=== PATIENT | male | born 1940 | race Caucasian/White ===

== ENCOUNTER 2018-06-24 10:20 | Inpatient (IN) | payer OTHER, MEDICARE ==
[~2018-06-24] VITALS: Ht 188 cm; Wt 124.3 kg
[~2018-06-24 10:20] MED LIST: ASPIRIN EC81 M1 PO; BACLOFEN10 M1 PO; CELEBREX100 M1 PO; CYANOCOBAL1000 MCG/2 IM; CYCLOBENZAPRINE5 M2 PO; DILAUDID2 M1 PO; DOK100 MG PO; FOLIC ACID1 M1 PO; LEVOTHYROXINE150 MCG PO; LISINOPRIL40 MG PO; LOVENOX40 MG/0.1 SC; LYRICA50 M1 PO; METOPROLOL TART25 M1 PO; ONE DAILY MULT1 EAC2 PO; PERCOCET 325 MG1 TA2 PO; SANTYL30 GM TOP; TRAMADOL HCL50 M1 PO; TYLENOL325 M1 PO; VALIUM 10 MG. T10 MG PO; VITAMIN D31000 UNI1 PO; VITAMIN D32000 I1 PO
--- NOTE | 2018-06-24 10:25 | ED GENERAL ADULT ---
History of Present Illness General Chief Complaint: Neuro Symptoms/ Deficit Stated Complaint: BIBA STROKE ALERT Source: patient, EMS Exam Limitations: clinical condition, physical impairment Vital Signs & Intake/Output Vital Signs & Intake/Output Vital Signs Date Time Temp Pulse Resp B/P B/P Pulse O2 O2 Flow FiO2 Mean Ox Delivery Rate 06/24 1436 97.0 60 16 140/80 94 Room Air 06/24 1347 97.5 52 18 148/64 98 06/24 1322 97.5 61 15 142/60 95 Room Air Room Air 06/24 1305 97.5 58 18 140/74 95 Room Air Room Air 06/24 1250 52 17 06/24 1233 98.5 50 18 132/70 98 Nasal 2.0L Cannula 06/24 1220 47 18 138/66 98 Nasal 2.0L Cannula 06/24 1205 47 18 138/68 98 Nasal 2.0L Cannula 06/24 1151 98.2 47 18 136/68 98 Nasal 2.0L Cannula 06/24 1135 98.2 45 18 136/72 97 Nasal 2.0L Cannula 06/24 1116 98.2 46 20 138/62 97 Nasal 2.0L Cannula 06/24 1033 52 15 136/68 92 Room Air Room Air Allergies Coded Allergies: No Known Allergies (06/24/18) Reconcile Medications Aspirin (Ecotrin*) 81 MG TABLET.DR 1 TAB PO DAILY HEART HEALTH (Reported) Cholecalciferol (Vitamin D3) (Vitamin D3) 1,000 UNIT CAPSULE 1 CAP PO DAILY VITAMIN SUPPORT (Reported) Cyanocobalamin (Vitamin B-12) (Cyanocobalamin Injection) 1,000 MCG/ML VIAL 1 ML IM Q30D VITAMIN SUPPORT (Reported) Folic Acid 1 MG TABLET 1 TAB PO DAILY VITAMIN SUPPORT (Reported) Hydralazine HCl 50 MG TABLET 1 TAB PO TID HEART (Reported) Levothyroxine Sodium 150 MCG TABLET 1 TAB PO DAILY AC THYROID (Reported) Metoprolol Tartrate 25 MG TABLET 1 TAB PO BID HEART (Reported) Multivitamin (One Daily Multivitamin) 1 EACH TABLET 1 TAB PO DAILY VITAMIN SUPPORT (Reported) Pregabalin (Lyrica) 50 MG CAPSULE 1 CAP PO BID PAIN (Reported) Tramadol HCl 50 MG TABLET 1 TAB PO BIDP PRN BREAKTHROUGH PAIN Triage Nurses Notes Reviewed? yes Onset: Abrupt Duration: minute(s): Timing: recent history HPI: 06/24/18 10:51 AM 77-year-old male presents to the emergency department for a sudden onset of right facial weakness and right upper and lower extremity weakness. According to EMS the patient was at the diner and 15 minutes prior to their arrival he was unable to speak and move his right side. The history was collaborated by his friends who were with him at the diner. Currently he is awake and alert and oriented 3. He is unable to speak but answers questions by nodding his head. He is unable to move his right arm or right leg. The onset of the symptoms were abrupt, the duration of the symptoms have been less than 1 hour, the severity is significant as his symptoms required him to come to the emergency department. A stroke alert was called and I discussed the case with the on-call neurologist Dr. Chicas. We are in agreement with the plan to give TPA. The patient verbalized consent and the risks and benefits of TPA were explained to him. His med reconciliation was performed to the best of his ability by the pharmacy consultant. The patient communicated that he is on no blood thinners other than aspirin. Past History Medical History Any Pertinent Medical History? 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 Refer elsewhere in this and other documents for additional details. There is no other information in these categories that I am aware of and no additional information was provided by the patient on consultation evaluation today which is directly pertinent to his current orthopaedic consultation assessment, recommendations or care. History of MRSA: No History of VRE: No History of CDIFF: No Surgical History Surgical History: hernia repair-umbilical, cervical discectomy carpal tunnel release (1982), achilles tendon repair Left hip intertrochanteric-subtroc hanteric fracture ORIF using long cephalomedullary nail (02/11/16, Aditi) ( 1993) Psychosocial History Who do you live with Patient/Self Services at Home None What is your primary language Urdu Family History Family History, If Any: MOTHER FH: Alzheimers disease FATHER FH: lung cancer Hx Contributory? No Review of Systems Review of Systems Constitutional: Denies: fever. EENTM: Reports: no symptoms. Respiratory: Denies: short of breath. Cardiovascular: Denies: chest pain. GI: Denies: abdominal pain, bloody stool. Genitourinary: Reports: no symptoms. Musculoskeletal: Reports: no symptoms. Skin: Reports: no symptoms. Neurological/Psychological: Reports: see HPI. Hematologic/Endocrine: Reports: no symptoms. Immunologic/Allergic: Reports: no symptoms. Physical Exam Physical Exam General Appearance: well developed/nourished, alert, awake, anxious, severe distress Head: atraumatic Eyes: Bilateral: normal appearance, PERRL, EOMI. Ears, Nose, Throat: normal pharynx, normal ENT inspection Neck: normal inspection, supple Respiratory: normal breath sounds, chest non-tender, no respiratory distress Cardiovascular: bradycardia Peripheral Pulses: 4+ radial (R), 4+ radial (L) Gastrointestinal: soft, non-tender Rectal: heme negative stool Back: decreased range of motion Extremities: splint to rle Neurologic/Psych: awake, alert, oriented x 3, motor weakness, motor/sensory deficits Skin: intact, normal color, warm/dry Core Measures ACS in differential dx? No CVA/TIA Diagnosis: Yes NIH Stroke Scale (24 Hours) NIH Stroke Scale (24 Hours) Response Value Level of Consciousness alert 0 LOC Questions incorrect 2 LOC Commands obeys both correctly 0 Best Gaze normal 0 Visual Vega no visual loss 0 Facial Paresis partial 2 Motor Arm - Left no drift 0 Motor Arm - Right no effort against gravity 3 Motor Leg - Left no drift 0 Motor Leg - Right no effort against gravity 3 Limb Ataxia no ataxia 0 Best Language mute 3 Dysarthria near to unintelligible 2 Extinction and Inattention no neglect 0 Total 15 tPA Risk/Benefit discussion I have discussed the risks, benefits, and alternatives of Alteplase treatment including: - If given promptly, can resolve or have major improvement in stroke symptoms. - Bleeding (hemorrhage) is the most common risk that can occur. - Bleeding may occur into the brain and cause~assisted serious disability~ including - this is rare, affecting about 1% of patients. - Alternative treatments with proven benefit for patients with stroke include aspirin and care in a specialized unit where staff members pay careful attention to a variety of basic aspects of care. tPA given? Yes Swallow Evaluation Fail Swallow eval date 06/24/18 Swallow eval time 1100 Sepsis Present: No Sepsis Focused Exam Completed? No Progress Differential Diagnoses I considered the following diagnoses in my evaluation of the patient: [CVA, TIA, intracranial bleed] Plan of Care: Orders Procedure Date/time Status XRY-CHEST XRAY, TWO VIEWS 06/[address] HEAD WO IV CONTRAST 06/25 1300 Active PT Evaluate & Treat 06/25 09 Active Occupational Tx Eval & Treat 06/25 09 Active LIPID PANEL 06/25 0500 Active CBC WITHOUT DIFFERENTIAL 06/25 0500 Active BASIC ELECTROLYTES PLUS BUN&CR 06/25 0500 Active PROTHROMBIN TIME 06/25 0100 Active ICU LAB BUNDLE 06/25 0100 Active CBC WITHOUT DIFFERENTIAL 06/25 0100 Active Heart Healthy Diet 06/24 L Active Wound Care/Dressing 06/24 1425 Complete Weight 06/24 1425 Complete VTE Mechanical Prophylaxis 06/24 1425 Complete Vital Signs 06/24 1425 Complete Turn and Reposition 06/24 1425 Active Drains/Tubes 06/24 142 Complete Teach/Educate 06/24 142 Active Skin Integrity Protocol 06/24 1425 Active Skin/Pressure Ulcer Assess (Sk 06/24 1425 Active Precautions 06/24 1425 Active Pain Treatment and Response 06/24 142 Active Nutritional Intake, Monitor 06/24 142 Active Isolation 06/24 1425 Active CIWA 06/24 1425 Complete Patient Care Conference 06/24 1425 Active Activity/Ambulation 06/24 1425 Complete VRE ACTIVE SURVIELLANCE 06/24 1413 Active ACTIVE SURVEILLANCE NARES 06/24 1413 Active URINALYSIS 06/24 1408 Active Pathway - chart 06/24 1327 Active Patient Data 06/24 1327 Active Code Status 06/24 1327 Active ECHOCARDIOGRAM 06/24 1327 Active Patient Data 06/24 1259 Active ED Holding Orders 06/24 1252 Active Admit to inpatient 06/24 1252 Active Vital Signs 06/24 1252 Active Code Status 06/24 1252 Complete Javed, Insertion/Removal/Asses 06/24 1128 Active Intake & Output 06/24 1126 Complete [place] Coma Scale 06/24 1115 Active Weight 06/24 1041 Active THYROID STIMULATING HORMONE 06/24 1033 Complete FREE T4 06/24 1033 Complete FingerStick- Glucose 06/24 1027 Active Saline Lock 06/24 1024 Active TROPONIN LEVEL 06/24 1024 Complete PROTHROMBIN TIME 06/24 1024 Complete COMPREHENSIVE METABOLIC PANEL 06/24 1024 Complete CBC WITHOUT DIFFERENTIAL 06/24 1024 Complete EKG 06/24 1024 Active NIH Stroke Scale 06/24 1020 Complete SWALLOW EVALUATION 06/24 UNK Active SPEECH EVALUATION 06/24 UNK Active House Staff 06/24 UNK Active Lab Add-on Test 06/24 UNK Active VTE Mechanical Prophylaxis 06/24 UNK Complete Vital Signs 06/24 UNK Complete Telemetry/Senior Java Programmer 06/24 UNK Active NIH Stroke Scale 06/24 UNK Active Intake & Output 06/24 UNK Active Activity/Ambulation 06/24 UNK Active Current Medications Sig/Lydia Start time Last Medication Dose Stop Time Status Admin Aspirin Buffered 81 MG DAILY 06/26 900 AC (Ecotrin) Cholecalciferol 1,000 IU DAILY 06/25 900 AC (Vitamin D) Folic Acid 1 MG DAILY 06/25 900 AC (Folic Acid) Multivitamins 1 TAB DAILY 06/25 900 AC Therapeutic (Theragran-M Vitamins Tabs) Levothyroxine Sodium 0.15 MG DAILY AC 06/25 700 AC (Synthroid) Atorvastatin Calcium 40 MG 1700 06/24 1700 AC (Lipitor) Pregabalin 50 MG BID 06/24 1421 AC (Lyrica) Laboratory Tests 06/24/18 1033: Anion Gap 7, Estimated GFR 53 L, BUN/Creatinine Ratio 19.2, Glucose 134 H, Calcium 9.0, Total Bilirubin 0.5, AST 18, ALT 28, Alkaline Phosphatase 59, Troponin I < 0.01, Total Protein 5.9 L, Albumin 3.3 L, Globulin 2.6, Albumin/ Globulin Ratio 1.3, TSH 6.360 H, Free T4 1.51, PT 13.0 H, INR 1.19 H, CBC w Diff NO MAN DIFF REQ, RBC 4.74, MCV 86.9, MCH 29.2, MCHC 33.6, RDW 14.6 H, MPV 9.2, Gran % 74.5, Lymphocytes % 7.9 L, Monocytes % 12.5 H, Eosinophils % 4.7, Basophils % 0.4, Absolute Granulocytes 4.9, Absolute Lymphocytes 0.5 L, Absolute Monocytes 0.8 H, Absolute Eosinophils 0.3, Absolute Basophils 0 Microbiology 06/24 1800 UPPER RESP: Surveillance Culture - RECD 06/24 1800 GI: Surveillance Culture - RECD Initial ED EKG: NSR Departure Departure Disposition: STILL A PATIENT Condition: Stable Clinical Impression Primary Impression: CVA (cerebral vascular accident) Referrals: Radha VALENTINO,Niya Guzman (PCP/Family) Departure Forms: Customer Survey General Discharge Information Comments 06/24/18 11:12 AM I spoke with the neurologist and we discussed the minimal elevation in the PT and INR 13 and 1.19. We are in agreement that this would be a relative contraindication and the benefits outweigh the risks of this major stroke. Admission Note Spoke With: Ally Delacruz MD Documentation of Exam: The patient received IV TPA for acute CVA. His condition is improving. CT angiogram is pending. He is been admitted to the ICU. PATIENT: GIANA ZULUAGA PRESENT AGE: 77 PATIENT ACCOUNT NO: [id number] : 38 LOCATION: [facility] ORDERING PHYSICIAN: Steven Joseph DO SERVICE DATE: 06/24/18 EXAM TYPE: CAT - CT HEAD WO IV CONTRAST EXAMINATION: CT HEAD WITHOUT CONTRAST CLINICAL INFORMATION: Altered mental status. Rule out CVA. COMPARISON: Head CTA 06/17/2016. TECHNIQUE: Contiguous axial imaging was performed from the skull base to vertex without intravenous administration of contrast. DLP: 613 mGy-cm. FINDINGS: There is no intracranial hemorrhage, large infarction, or mass lesion. There is no extra-axial collection. There is no dense vessel sign or obscuration of the insula or basal ganglia. The ventricles are normal in size and configuration without evidence of hydrocephalus. The visualized paranasal sinuses and mastoid air cells are clear. There are atherosclerotic calcification of the carotid siphons and vertebral arteries. The major dural venous sinuses demonstrate normal attenuation for noncontrast technique. IMPRESSION: No acute intracranial abnormality. This critical result was discussed with Steven Joseph on 06/24/2018 10:42 AM, and it was ascertained that the content and urgency of the report was understood at the time of direct communication. DICTATED BY: Hollie Ware MD DATE/TIME DICTATED:06/24/181033 INDUSTRIAL SPRAY PAINTER:JOSE DATE/TIME TRANSCRIBED:08/07/18 / 1034 CONFIDENTIAL, DO NOT COPY WITHOUT APPROPRIATE AUTHORIZATION. <Electronically signed in Other Vendor System> SIGNED BY: Hollie Ware MD 06/24/189 PATIENT: GIANA ZULUAGA PRESENT AGE: 77 PATIENT ACCOUNT NO: [id number] : 38 LOCATION: [facility] ORDERING PHYSICIAN: Steven Joseph DO SERVICE DATE: 06/24/18 EXAM TYPE: CAT - CT HEAD ANGIOGRAM; CT NECK ANGIOGRAM EXAMINATION: CTA OF THE HEAD AND NECK CLINICAL INFORMATION: Status post CVA. Rule out large vessel occlusion. Patient receiving tPA. COMPARISON: Head CT from 06/17/2016. TECHNIQUE: Test bolus sequences followed by intravenous administration 95 mL of Optiray 320. Helical imaging was performed in the axial plane from the mediastinum to the skull vertex. Delayed postcontrast imaging of the head was also performed. The data was processed at the industrial engineering technologist's workstation for generation of MIP sequences. Three-dimensional volume rendered reformatted images were also generated at an offline 3-D workstation. Stenoses are assessed in accordance with NASCET criteria unless otherwise indicated. DLP: 2645.3 mGy-cm. FINDINGS: CT head: There is no evidence of acute intracranial hemorrhage or territorial infarction. There is no loss of armstrong to white matter differentiation. No abnormal mass effect or midline shift is seen. No extra-axial fluid collections are identified. There is no abnormal enhancement. The ventricles are normal in size. Small chronic lacunar infarcts are present in the basal ganglia. The osseous structures and soft tissues are normal. The mastoid air cells and visualized portions of the paranasal sinuses are well aerated. CTA neck: The imaged aortic arch and origins of the great vessels are patent with scattered atherosclerotic wall calcifications. The common carotid arteries are of normal caliber. Moderate atherosclerotic wall calcifications present at the carotid bifurcations and at the origins of the internal carotid arteries, though without significant stenosis. The remainder of the cervical internal carotid arteries are normal. The vertebral arteries opacify normally and are of normal caliber. 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 Moderate cervical spondylosis also evident. The imaged portions of the lungs are clear. CTA head: The nondominant right vertebral artery terminates in the PICA branch. The left vertebral artery is of normal caliber. There is no visible contrast in the lower and mid segments of the basilar artery. Contrast is present in the mid to upper basilar artery at the level of the superior cerebellar arteries and basilar tip. The PCOM branches opacify normally. The posterior cerebral arteries are widely patent. There is mild to moderate stenosis in the supraclinoid right ICA. The internal carotid arteries are otherwise of normal caliber with significant atherosclerotic wall calcifications. The PATRICIA and MCA vascular complexes bilaterally are normal. The venous sinuses opacify normally. 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 Contrast present in the diminutive upper basilar artery at the level of the P1 segments and superior cerebellar arteries. Patent PCOM segments bilaterally. No significant stenosis in the cervical vasculature. No acute territorial infarction, however, evaluation for focal ischemic infarcts is limited. Chronic lacunar infarcts in the basal ganglia. DICTATED BY: Placido Arteaga MD DATE/TIME DICTATED:06/24/181309 INDUSTRIAL SPRAY PAINTER:JOSE DATE/TIME TRANSCRIBED:06/24/181309 CONFIDENTIAL, DO NOT COPY WITHOUT APPROPRIATE AUTHORIZATION. <Electronically signed in Other Vendor System> SIGNED BY: Placido Arteaga MD [id number] Critical Care Note Critical Care Note Critical Care Time: 75-104 min
[2018-06-24 10:48] LABS: ABSOLUTE BASOPHIL COUNT 0 /CUMM (0.0-0.2); ABSOLUTE EOSINOPHIL COUNT 0.3 /CUMM (0.0-0.7); ABSOLUTE GRANULOCYTE CT 4.9 /CUMM (1.4-6.5); ABSOLUTE LYMPH COUNT 0.5 /CUMM (1.2-3.4); ABSOLUTE MONOCYTE COUNT 0.8 /CUMM (0.10-0.60); BASOPHIL % 0.4 % (0.0-2.0); EOSINOPHIL % 4.7 % (0-5); GRANULOCYTE % 74.5 % (42.2-75.2); HEMATOCRIT 41.2 % (42-52); MEAN CORPUSCULAR HGB 29.2 PG (27.0-31.0); MEAN CORPUSCULAR HGB CONC 33.6 G/DL (33.0-37.0); MEAN CORPUSCULAR VOLUME 86.9 FL (80.0-94.0); MEAN PLATELET VOLUME 9.2 FL (7.4-10.4); PLATELET COUNT 232 /CUMM (130-400); RBC DISTRIBUTION WIDTH 14.6 % (11.5-14.5); RED BLOOD CELL CT 4.74 /CUMM (4.70-6.10)
[2018-06-24] MEDS ORDERED: HYDRALAZINE HCL50 M1 PO (10:49)
--- NOTE | 2018-06-24 10:49 | CT SCAN REPORT ---
EXAMINATION: CT HEAD WITHOUT CONTRAST CLINICAL INFORMATION: Altered mental status. Rule out CVA. COMPARISON: Head CTA 06/17/2016. TECHNIQUE: Contiguous axial imaging was performed from the skull base to vertex without intravenous administration of contrast. DLP: 613 mGy-cm. FINDINGS: There is no intracranial hemorrhage, large infarction, or mass lesion. There is no extra-axial collection. There is no dense vessel sign or obscuration of the insula or basal ganglia. The ventricles are normal in size and configuration without evidence of hydrocephalus. The visualized paranasal sinuses and mastoid air cells are clear. There are atherosclerotic calcification of the carotid siphons and vertebral arteries. The major dural venous sinuses demonstrate normal attenuation for noncontrast technique. IMPRESSION: No acute intracranial abnormality. This critical result was discussed with Steven Joseph on 06/24/2018 10:42 AM, and it was ascertained that the content and urgency of the report was understood at the time of direct communication.
[2018-06-24 11:07] LABS: WHITE BLOOD CELL COUNT 6.5 /CUMM (4.8-10.8)
--- NOTE | 2018-06-24 11:23 | RADIOLOGY REPORT ---
EXAMINATION: XR PORTABLE CHEST CLINICAL INFORMATION: AMS. Rule out aspiration. COMPARISON: Chest x-ray dated 06/17/2016 and 02/11/2016. TECHNIQUE: Portable AP semierect view of the chest was obtained. FINDINGS: EKG leads overlie the chest. The patient is slightly rotated, limiting assessment of the cardiomediastinal silhouette, which appears slightly enlarged, likely projectional. Tortuosity and ectasia of the aorta is seen. There is some patchy opacity seen in the left lung base, poorly evaluated due to motion artifact, possibly due to subsegmental atelectasis. No dense consolidation, effusion or pneumothorax is seen. Extensive degenerative changes as seen in the left shoulder joint. IMPRESSION: Low lung volumes with patchy opacity in the left lung base, most likely related to subsegmental atelectasis. Follow-up chest x-ray with nodular inspiration and PA and lateral views is recommended to exclude a developing chemical or infectious pneumonia.
--- NOTE | 2018-06-24 13:04 | History & Physical ---
Maday Alvarez MD 06/24/18 1300: General Information and HPI MD Statement: I have seen and personally examined GIANA ZULUAGA and documented this H&P. The patient is a 77 year old M who presented with a patient stated chief complaint of [sudden onset right sided weakness and facial droop]. 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 He started feeling funny in his right hand and face with tingling sensations, so he started feeling the same in his leg. Within few minutes he was unable to talk and EMS were called and a stroke alert was made. He was brought to ER and sent to CT scan immediately, once rule out hemorrhage and contraindications he was given tPA after discussing benefits and risks. Within few minutes after giving TPA he recovered very well he started having near normal speech and able to move both his upper and lower extremities. By the time of my interview in the ER, he is alert oriented 3 able to communicate well and able to move all his 4 extremities. He feels his speech is not back to normal, passed bedside swallow evaluation. At baseline patient had neuropathy of his lower extremities and uses a cane, responds well to Lyrica. Never checks his blood pressure at home. He lives independently with a female friend. Unmarried. Quit smoking in , quit alcohol in 1998. No drug intake. He had a fall secondary to neuropathy and fractured his femur around one and half years ago which was repaired. He did have a back surgery with screw insertions for back pain. Allergies/Medications Allergies: Coded Allergies: No Known Allergies (06/24/18) Home Med list Aspirin (Ecotrin*) 81 MG TABLET. 1 TAB PO DAILY HEART HEALTH (Reported) Cholecalciferol (Vitamin D3) (Vitamin D3) 1,000 UNIT CAPSULE 1 CAP PO DAILY VITAMIN SUPPORT (Reported) Cyanocobalamin (Vitamin B-12) (Cyanocobalamin Injection) 1,000 MCG/ML VIAL 1 ML IM Q30D VITAMIN SUPPORT (Reported) Folic Acid 1 MG TABLET 1 TAB PO DAILY VITAMIN SUPPORT (Reported) Hydralazine HCl 50 MG TABLET 1 TAB PO TID HEART (Reported) Levothyroxine Sodium 150 MCG TABLET 1 TAB PO DAILY AC THYROID (Reported) Metoprolol Tartrate 25 MG TABLET 1 TAB PO BID HEART (Reported) Multivitamin (One Daily Multivitamin) 1 EACH TABLET 1 TAB PO DAILY VITAMIN SUPPORT (Reported) Pregabalin (Lyrica) 50 MG CAPSULE 1 CAP PO BID PAIN (Reported) Tramadol HCl 50 MG TABLET 1 TAB PO BIDP PRN BREAKTHROUGH PAIN Compliance With Home Meds: FAIR Past History Travel History Traveled to [place] past 21 day No Medical History Neurological: NONE EENT: NONE Cardiovascular: HYPERTENSION Respiratory: NONE Gastrointestinal: umbilical hernia Hepatic: NONE Renal: NONE Musculoskeletal: LE NEUROPATHY ATROPHY OF LEGS Psychiatric: NONE Endocrine: DIET CONTROLLED DIABETES HYPOTHYROIDISM Blood Disorders: PERNICIOUS ANEMIA Cancer(s): melanoma 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 Refer elsewhere in this and other documents for additional details. There is no other information in these categories that I am aware of and no additional information was provided by the patient on consultation evaluation today which is directly pertinent to his current orthopaedic consultation assessment, recommendations or care. History of MRSA: No History of VRE: No History of CDIFF: No Surgical History Surgical History: hernia repair-umbilical, cervical discectomy carpal tunnel release (1982), achilles tendon repair Left hip intertrochanteric-subtroc hanteric fracture ORIF using long cephalomedullary nail (02/11/16, [facility]) ( 1993) Past Family/Social History Family History Relations & Conditions if any MOTHER FH: Alzheimers disease FATHER FH: lung cancer Psychosocial History Where do you live? Home Who Do You Live With? self Services at Home: None Primary Language: Persian Functional Ability ADLs Independent: dressing, eating, toileting, bathing. Ambulation: walker, frequent falls IADLs Independent: shopping, housework, finances, food prep, telephone, transportation , medication admin. Review of Systems Review of Systems Constitutional: Reports: see HPI. EENTM: Reports: see HPI. Cardiovascular: Reports: see HPI. Exam & Diagnostic Data Last 24 Hrs of Vital Signs/I&O Vital Signs Date Time Temp Pulse Resp B/P B/P Pulse O2 O2 Flow FiO2 Mean Ox Delivery Rate 06/24 1233 98.5 50 18 132/70 98 Nasal 2.0L Cannula 06/24 1220 47 18 138/66 98 Nasal 2.0L Cannula 06/24 1205 47 18 138/68 98 Nasal 2.0L Cannula 06/24 1151 98.2 47 18 136/68 98 Nasal 2.0L Cannula 06/24 1135 98.2 45 18 136/72 97 Nasal 2.0L Cannula 06/24 1116 98.2 46 20 138/62 97 Nasal 2.0L Cannula 06/24 1033 52 15 136/68 92 Room Air Room Air Intake & Output 06/24 1600 06/24 0800 06/24 0000 Intake Total Output Total 75 Balance -75 Output, Urine 75 Patient 123 kg Weight Weight Bed scale Measurement Method Physical Exam General Appearance Alert, Oriented X3, Cooperative, No Acute Distress Skin No Rashes, No Breakdown Skin Temp/Moisture Exam: Warm/Dry Sepsis Skin Exam (color): Normal for Ethnicity HEENT Atraumatic, PERRLA, EOMI Neck Supple, No JVD Cardiovascular Normal S1, Normal S2, No Murmurs Lungs Clear to Auscultation, Normal Air Movement Abdomen Normal Bowel Sounds, No Tenderness, mild distention present Neurological Normal Speech, Normal Tone, Sensation Intact, Cranial Nerves 3-12 NL, Reflexes 2+, decreased strength of right lower extremity 4/5. foot drop present. , normal strength in both upper extremities and left lower extremity Extremities No Clubbing, No Cyanosis, No Edema Body Front and Back (Adult) 1) weakness in the right leg region 4/5 (baseline) Last 24 Hrs of Labs/Ash: Laboratory Tests 06/24/18 1033: Anion Gap 7, Estimated GFR 53 L, BUN/Creatinine Ratio 19.2, Glucose 134 H, Calcium 9.0, Total Bilirubin 0.5, AST 18, ALT 28, Alkaline Phosphatase 59, Troponin I < 0.01, Total Protein 5.9 L, Albumin 3.3 L, Globulin 2.6, Albumin/ Globulin Ratio 1.3, TSH 6.360 H, Free T4 1.51, PT 13.0 H, INR 1.19 H, CBC w Diff NO MAN DIFF REQ, RBC 4.74, MCV 86.9, MCH 29.2, MCHC 33.6, RDW 14.6 H, MPV 9.2, Gran % 74.5, Lymphocytes % 7.9 L, Monocytes % 12.5 H, Eosinophils % 4.7, Basophils % 0.4, Absolute Granulocytes 4.9, Absolute Lymphocytes 0.5 L, Absolute Monocytes 0.8 H, Absolute Eosinophils 0.3, Absolute Basophils 0 Microbiology 06/24 1413 UPPER RESP: Surveillance Culture - ORD 06/24 1413 GI: Surveillance Culture - ORD Diagnostic Data EKG Results sinus bradycardia with first degree AV block CXR Results Low lung volumes with patchy opacity in the left lung base, most likely related to subsegmental atelectasis. Follow-up chest x-ray with nodular inspiration and PA and lateral views is recommended to exclude a developing chemical or infectious pneumonia. 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 Contrast present in the diminutive upper basilar artery at the level of the P1 segments and superior cerebellar arteries. Patent PCOM segments bilaterally. No significant stenosis in the cervical vasculature. No acute territorial infarction, however, evaluation for focal ischemic infarcts is limited. Chronic lacunar infarcts in the basal ganglia. Assessment/Plan Assessment: Patient is a 15-year-old male with past medical history significant for hypertension on aspirin, hydralazine, metoprolol, lower extremity neuropathy on pregabalin, pernicious anemia on B12 injections presented with sudden onset right-sided facial droop and right-sided weakness/tingling with having breakfast this morning at around 10 AM. Stroke alert was called by EMS, he had a CT scan and given TPA at 11:20 AM less than 3 hours with the time of onset after ruling out hemorrhagie/contraindications. Vital signs at presentation are significant for bradycardia, blood pressure 136/60 mmHg saturating well on room air. Physical examination - alert and oriented 3, normal speech, HEENT PERRLA, cranial nerves II-12 intact, normal strength in the upper extremities along with sensations, normal strength in left lower extremity, decreased strength 4 out of 5 in the right lower extremity, clear lungs and heart examination. Abdomen soft nontender with normal bowel movements. Labs returned white count 6.5, H&H 13/41 , platelets 232. Chemistry panel unremarkable except for creatinine 1.3, TSH 6.3, free T4 1 0.51, PT/PTT 13/1.19. UA pending. CT had ruled out acute hemorrhage. EKG did show sinus bradycardia with first-degree AV block. Imaging studies chest x-ray did show patchy opacity left lung base needs follow-up imaging tomorrow. Head and neck CT angiogram did show mid basilar artery occlusion which is age indeterminate, mild to moderate stenosis of internal carotid artery. Differentials Possible atherosclerotic secondary to blood pressure given calcifications, imaging is not very helpful at this point. Other possibilities include cardioembolic source. Plan Admitted to ICU post TPA protocol for monitoring next 24 hours Acute ischemic stroke * Status post TPA (within 3hrs) * Significant improvement after TPA with recovery of right-sided weakness and speech * Close monitoring of vitals and neuro checks every 1 hour * Any changes in mentation/NIH scale is stat CT head to rule out hemorrhage * Blood pressure goal less than 1 80 /110 mmHg * No intra-arterial punches in the next 24 hours * PT/OT/speech therapy * Passed bedside swallow evaluation - will obtain formal swallow eval * CBC, BEP, lipid panel tomorrow a.m. * Echocardiogram and carotid ultrasound for further evaluation * Cardiology and neurology consultations * CT of head without IV contrast scan 24 hours after TPA Chest x-ray did show patchy left lung base opacity Asymptomatic, saturating well on room air, normal white count. * Repeat chest x-ray tomorrow History of hypothyroidism TSH 6.3, free T4 normal * Continue levothyroxine 150 mg daily History of lower extremity neuropathy * Continue pregabaline History of hypertension Hold antihypertensives for the next 24 hours. Permissive hypertension 180/110 mmHg. * Restart hydralazine and metoprolol tomorrow DVT prophylaxis None for the next 24 hours given TPA code status full code As Ranked By This Provider Problem List: 1. CVA (cerebral vascular accident) Core Measures/Misc (08/04) Acute Coronary Syndrome ACS Diagnosis: No Congestive Heart Failure Congestive Heart Failure Diagnosis No Cerebrovascular Accident CVA/TIA Diagnosis: Yes NIH Stroke Scale: Total 13 Date Last Known Well: 06/24/18 Time Last Known Well: 09 Symptom Start Date: 06/24/18 Symptom Start Time: 1000 tPA Risk/Benefit discussion I have discussed the risks, benefits, and alternatives of Alteplase treatment including: - If given promptly, can resolve or have major improvement in stroke symptoms. - Bleeding (hemorrhage) is the most common risk that can occur. - Bleeding may occur into the brain and cause~chcf serious disability~ including - this is rare, affecting about 1% of patients. - Alternative treatments with proven benefit for patients with stroke include aspirin and care in a specialized unit where staff members pay careful attention to a variety of basic aspects of care. tPA given? Yes Swallow Evaluation Fail VTE (View Protocol) VTE Risk Factors Age>40 No Mechanical VTE Prophylaxis d/t Medical Contraindication No VTE Pharm Prophylaxis d/t Medical Contraindication Sepsis (View protocol) Sepsis Present: No If YES complete Sepsis Event Note If YES complete Sepsis Event Note Resident Review Statement Resident Statement: examined this patient, discussed with internship coordinator, agreed with internship coordinator, discussed with family, reviewed EMR data (avail), discussed with nursing , discussed with case mgmt, reviewed images, amended to note Other Findings: as above Jayme VALENTINO,KamilahJovanny Justina 06/24/18 1652: Core Measures/Misc (08/04) Sepsis (View protocol) If YES complete Sepsis Event Note If YES complete Sepsis Event Note Attending MD Review Statement Attending Statement Attending MD Statement: examined this patient, discuss w/resident/PA/WELFARE PROJECT MANAGER, agreed w/resident/PA/WELFARE PROJECT MANAGER, discussed with family, reviewed EMR data (avail), discussed with nursing, reviewed images
--- NOTE | 2018-06-24 13:34 | CT SCAN REPORT ---
EXAMINATION: CTA OF THE HEAD AND NECK CLINICAL INFORMATION: Status post CVA. Rule out large vessel occlusion. Patient receiving tPA. COMPARISON: Head CT from 06/17/2016. TECHNIQUE: Test bolus sequences followed by intravenous administration 95 mL of Optiray 320. Helical imaging was performed in the axial plane from the mediastinum to the skull vertex. Delayed postcontrast imaging of the head was also performed. The data was processed at the echocardiography technologist's workstation for generation of MIP sequences. Three-dimensional volume rendered reformatted images were also generated at an offline 3-D workstation. Stenoses are assessed in accordance with NASCET criteria unless otherwise indicated. DLP: 2645.3 mGy-cm. FINDINGS: CT head: There is no evidence of acute intracranial hemorrhage or territorial infarction. There is no loss of armstrong to white matter differentiation. No abnormal mass effect or midline shift is seen. No extra-axial fluid collections are identified. There is no abnormal enhancement. The ventricles are normal in size. Small chronic lacunar infarcts are present in the basal ganglia. The osseous structures and soft tissues are normal. The mastoid air cells and visualized portions of the paranasal sinuses are well aerated. CTA neck: The imaged aortic arch and origins of the great vessels are patent with scattered atherosclerotic wall calcifications. The common carotid arteries are of normal caliber. Moderate atherosclerotic wall calcifications present at the carotid bifurcations and at the origins of the internal carotid arteries, though without significant stenosis. The remainder of the cervical internal carotid arteries are normal. The vertebral arteries opacify normally and are of normal caliber. 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 Moderate cervical spondylosis also evident. The imaged portions of the lungs are clear. CTA head: The nondominant right vertebral artery terminates in the PICA branch. The left vertebral artery is of normal caliber. There is no visible contrast in the lower and mid segments of the basilar artery. Contrast is present in the mid to upper basilar artery at the level of the superior cerebellar arteries and basilar tip. The PCOM branches opacify normally. The posterior cerebral arteries are widely patent. There is mild to moderate stenosis in the supraclinoid right ICA. The internal carotid arteries are otherwise of normal caliber with significant atherosclerotic wall calcifications. The PATRICIA and MCA vascular complexes bilaterally are normal. The venous sinuses opacify normally. 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 Contrast present in the diminutive upper basilar artery at the level of the P1 segments and superior cerebellar arteries. Patent PCOM segments bilaterally. No significant stenosis in the cervical vasculature. No acute territorial infarction, however, evaluation for focal ischemic infarcts is limited. Chronic lacunar infarcts in the basal ganglia.
[2018-06-24 14:36] VITALS: BP 140/80
--- NOTE | 2018-06-24 14:54 | Cons- Neurology ---
General Information and HPI Consulting Request Date of Consult: 06/24/18 Requested By: Jayme VALENTINO,Ally Calderon Reason for Consult: CVA, s/p TPA Source of Information: patient, old records, ER MD Exam Limitations: no limitations History of Present Illness: 77-year-old man with no prior neurologic history suddenly did not feel well at breakfast. He rapidly found it difficult to eat and developed weakness of the right arm and leg. This progressed to the point that he could not move the right arm at all and could not speak intelligible words. He tells me he understood others and had no visual disturbance. He seemed unsure as to whether there was any numbness on the right side. TPA was administered and now that he has arrived in the ICU symptoms have markedly cleared. He has only minimal slurring of speech, the right arm feels heavy but is moving quite well. Pre-existing right lower extremity weakness, foot drop, wears an AFO per known peripheral neuropathy with numbness and paresthesias distally right leg more than left Allergies/Medications Allergies: Coded Allergies: No Known Allergies (06/24/18) Home Med List: Aspirin (Ecotrin*) 81 MG TABLET.DR 1 TAB PO DAILY HEART HEALTH (Reported) Cholecalciferol (Vitamin D3) (Vitamin D3) 1,000 UNIT CAPSULE 1 CAP PO DAILY VITAMIN SUPPORT (Reported) Cyanocobalamin (Vitamin B-12) (Cyanocobalamin Injection) 1,000 MCG/ML VIAL 1 ML IM Q30D VITAMIN SUPPORT (Reported) Folic Acid 1 MG TABLET 1 TAB PO DAILY VITAMIN SUPPORT (Reported) Hydralazine HCl 50 MG TABLET 1 TAB PO TID HEART (Reported) Levothyroxine Sodium 150 MCG TABLET 1 TAB PO DAILY AC THYROID (Reported) Metoprolol Tartrate 25 MG TABLET 1 TAB PO BID HEART (Reported) Multivitamin (One Daily Multivitamin) 1 EACH TABLET 1 TAB PO DAILY VITAMIN SUPPORT (Reported) Pregabalin (Lyrica) 50 MG CAPSULE 1 CAP PO BID PAIN (Reported) Tramadol HCl 50 MG TABLET 1 TAB PO BIDP PRN BREAKTHROUGH PAIN Current Medications: Current Medications Sig/Lydia Start time Last Medication Dose Route Stop Time Status Admin Alteplase, 9 MG BOLUS ONE 06/24 1100 DC 06/24 Recombinant IV 06/24 1101 1120 Alteplase, 81 MG ONCE ONE 06/24 1100 DC 08/07 Recombinant IV 06/24 1101 1120 Alteplase, 0 .STK-MED ONE 06/24 1100 DC Recombinant IV Aspirin Buffered 81 MG DAILY 06/26 900 AC PO Atorvastatin Calcium 80 MG 1700 06/24 1700 AC PO Cholecalciferol 1,000 IU DAILY 06/25 900 AC PO Folic Acid 1 MG DAILY 06/25 900 AC PO Levothyroxine Sodium 0.15 MG DAILY AC 06/25 700 AC PO Multivitamins 1 TAB DAILY 06/25 900 AC Therapeutic PO Pregabalin 50 MG BID 06/24 1421 AC PO Review of Systems Review of Systems: The complete medical ROS at this time is negative. He specifically denied headache, chest pain or palpitations, dyspnea. He does report prior blood clots in the left arm but has no symptoms there. 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 Refer elsewhere in this and other documents for additional details. There is no other information in these categories that I am aware of and no additional information was provided by the patient on consultation evaluation today which is directly pertinent to his current orthopaedic consultation assessment, recommendations or care. Surgical History Surgical History: hernia repair-umbilical, cervical discectomy carpal tunnel release (1982), achilles tendon repair Left hip intertrochanteric-subtroc hanteric fracture ORIF using long cephalomedullary nail (02/11/16, Aditi) ( 1993) Family History Relations & Conditions If Any: MOTHER FH: Alzheimers disease FATHER FH: lung cancer Psychosocial History Who Do You Live With? self Services at Home: None Primary Language: Argentine Functional Ability ADLs Independent: dressing, eating, toileting, bathing. Ambulation: walker, frequent falls IADLs Independent: shopping, housework, finances, food prep, telephone, transportation , medication admin. Exam & Diagnostic Data Vital Signs and I&O Vital Signs Date Time Temp Pulse Resp B/P B/P Pulse O2 O2 Flow FiO2 Mean Ox Delivery Rate 06/24 1436 97.0 60 16 140/80 94 Room Air 06/24 1347 97.5 52 18 148/64 98 06/24 1322 97.5 61 15 142/60 95 Room Air Room Air 06/24 1305 97.5 58 18 140/74 95 Room Air Room Air 06/24 1250 52 17 06/24 1233 98.5 50 18 132/70 98 Nasal 2.0L Cannula 06/24 1220 47 18 138/66 98 Nasal 2.0L Cannula 06/24 1205 47 18 138/68 98 Nasal 2.0L Cannula 06/24 1151 98.2 47 18 136/68 98 Nasal 2.0L Cannula 06/24 1135 98.2 45 18 136/72 97 Nasal 2.0L Cannula 06/24 1116 98.2 46 20 138/62 97 Nasal 2.0L Cannula 06/24 1033 52 15 136/68 92 Room Air Room Air Intake & Output 06/24 1600 06/24 0800 06/24 0000 Intake Total Output Total 75 Balance -75 Output, Urine 75 Patient 271 lb Weight Weight Bed scale Measurement Method Physical Exam: On exam the patient appeared generally well and in no distress. No carotid bruits and no cardiac murmur. No peripheral edema Mental status: Alert, attentive, fully oriented, no language errors, recall and general fund of knowledge seem intact. minimal dysarthria Funduscopic unremarkable Visual lopez full , Eye movements full without nystagmus, pupils midsize equal round and reactive to light. Facial movement normal bilaterally Facial sensation normal bilaterally Hearing intact bilaterally Uvula elevates midline Tongue protrusion is midline Shoulder shrug symmetric Motor power and tone normal in both arms, no drift, 4/5 distal right lower extremity weakness-footdrop, plantar flexion seems strong. Sensation intact to primary modes Tendon reflexes normal and symmetric without pathologic signs Coordination no ataxia Gait [testing deferred][normal] Last 48 Hours of Lab Results: Laboratory Tests 06/24 1033 Chemistry Sodium (137 - 145 mmol/L) 138 Potassium (3.5 - 5.1 mmol/L) 4.6 Chloride (98 - 107 mmol/L) 104 Carbon Dioxide (22 - 30 mmol/L) 27 Anion Gap (5 - 16) 7 BUN (9 - 20 mg/dL) 25 H Creatinine (0.7 - 1.2 mg/dL) 1.3 H Estimated GFR (>60 ml/min) 53 L BUN/Creatinine Ratio (7 - 25 %) 19.2 Glucose (65 - 99 mg/dL) 134 H Calcium (8.4 - 10.2 mg/dL) 9.0 Total Bilirubin (0.2 - 1.3 mg/dL) 0.5 AST (17 - 59 U/L) 18 ALT (21 - 72 U/L) 28 Alkaline Phosphatase (< 127 U/L) 59 Troponin I (<0.11 ng/ml) < 0.01 Total Protein (6.3 - 8.2 g/dL) 5.9 L Albumin (3.5 - 5.0 g/dL) 3.3 L Globulin (1.9 - 4.2 gm/dL) 2.6 Albumin/Globulin Ratio (1.1 - 2.2 %) 1.3 TSH (0.270 - 4.200 uIU/mL) Pending Free T4 (0.78 - 2.44 ng/dL) Pending Coagulation PT (9.4 - 12.5 SEC) 13.0 H INR (0.90 - 1.17) 1.19 H Hematology CBC w Diff NO MAN DIFF REQ WBC (4.8 - 10.8 /CUMM) 6.5 RBC (4.70 - 6.10 /CUMM) 4.74 Hgb (14.0 - 18.0 G/DL) 13.9 L Hct (42 - 52 %) 41.2 L MCV (80.0 - 94.0 FL) 86.9 MCH (27.0 - 31.0 PG) 29.2 MCHC (33.0 - 37.0 G/DL) 33.6 RDW (11.5 - 14.5 %) 14.6 H Plt Count (130 - 400 /CUMM) 232 MPV (7.4 - 10.4 FL) 9.2 Gran % (42.2 - 75.2 %) 74.5 Lymphocytes % (20.5 - 51.1 %) 7.9 L Monocytes % (1.7 - 9.3 %) 12.5 H Eosinophils % (0 - 5 %) 4.7 Basophils % (0.0 - 2.0 %) 0.4 Absolute Granulocytes (1.4 - 6.5 /CUMM) 4.9 Absolute Lymphocytes (1.2 - 3.4 /CUMM) 0.5 L Absolute Monocytes (0.10 - 0.60 /CUMM) 0.8 H Absolute Eosinophils (0.0 - 0.7 /CUMM) 0.3 Absolute Basophils (0.0 - 0.2 /CUMM) 0 Imaging/Other Studies: CT head, CTA head and neck: 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 Contrast present in the diminutive upper basilar artery at the level of the P1 segments and superior cerebellar arteries. Patent PCOM segments bilaterally. No significant stenosis in the cervical vasculature. No acute territorial infarction, however, evaluation for focal ischemic infarcts is limited. Chronic lacunar infarcts in the basal ganglia. Assessment/Plan Assessment: CVA, left hemispheric, initial NIH SS was about 14 according to communication with the ER MD, markedly improved following administration of TPA. 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
--- NOTE | 2018-06-24 16:55 | Admission Certification ---
Admission Certification Certification Statement - As attending physician, I certify that at the time of - admission, based on clinical presentation, severity of - symptoms, need for further diagnostic testing and - therapeutic interventions, and risk of adverse outcomes - without in-hospital treatment, in my clinical assessment, - this patient requires an acute hospital stay for a minimum - of two nights or longer. I have also considered psychsocial - factors such as support system, advanced age, financial - issues, cognitive issues, and failed out-patient treatments, - past re-admission history, safety of patient, and lack of - compliance as applicable. Specific rationale supporting this admission is: Acute ischemic stroke, s/p TPA, bradycardia, needs CRCU admission for treatment and monitoring.
--- NOTE | 2018-06-24 17:04 | Cons- Cardiology ---
General Information and HPI Consulting Request Date of Consult: 06/24/18 Requested By: Jayme VALENTINO,Ally Calderon Reason for Consult: Stroke History of Present Illness: The patient is a 77-year-old male with history of hypertension, hypothyroidism, and pernicious anemia who developed sudden onset of right-sided weakness and speech deficit while eating breakfast in a restaurant. EMS was called. Upon arrival in the emergency department he was treated with TPA, with near complete recovery of speech and strength. No chest pain. No palpitations. No lightheadedness or dizziness. No nausea or vomiting. Allergies/Medications Allergies: Coded Allergies: No Known Allergies (06/24/18) Home Med List: Aspirin (Ecotrin*) 81 MG TABLET.DR 1 TAB PO DAILY HEART HEALTH (Reported) Cholecalciferol (Vitamin D3) (Vitamin D3) 1,000 UNIT CAPSULE 1 CAP PO DAILY VITAMIN SUPPORT (Reported) Cyanocobalamin (Vitamin B-12) (Cyanocobalamin Injection) 1,000 MCG/ML VIAL 1 ML IM Q30D VITAMIN SUPPORT (Reported) Folic Acid 1 MG TABLET 1 TAB PO DAILY VITAMIN SUPPORT (Reported) Hydralazine HCl 50 MG TABLET 1 TAB PO TID HEART (Reported) Levothyroxine Sodium 150 MCG TABLET 1 TAB PO DAILY AC THYROID (Reported) Metoprolol Tartrate 25 MG TABLET 1 TAB PO BID HEART (Reported) Multivitamin (One Daily Multivitamin) 1 EACH TABLET 1 TAB PO DAILY VITAMIN SUPPORT (Reported) Pregabalin (Lyrica) 50 MG CAPSULE 1 CAP PO BID PAIN (Reported) Tramadol HCl 50 MG TABLET 1 TAB PO BIDP PRN BREAKTHROUGH PAIN Past History Travel History Traveled to [place] past 21 day No Medical History Blood Transfusion Hx: No Neurological: NONE EENT: NONE Cardiovascular: HYPERTENSION Respiratory: NONE Gastrointestinal: umbilical hernia Hepatic: NONE Renal: NONE Musculoskeletal: LE NEUROPATHY ATROPHY OF LEGS Psychiatric: NONE Endocrine: DIET CONTROLLED DIABETES HYPOTHYROIDISM Blood Disorders: PERNICIOUS ANEMIA Cancer(s): melanoma 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 Refer elsewhere in this and other documents for additional details. There is no other information in these categories that I am aware of and no additional information was provided by the patient on consultation evaluation today which is directly pertinent to his current orthopaedic consultation assessment, recommendations or care. Surgical History Surgical History: hernia repair-umbilical, cervical discectomy carpal tunnel release (1982), achilles tendon repair Left hip intertrochanteric-subtroc hanteric fracture ORIF using long cephalomedullary nail (02/11/16, Aditi) ( 1993) Family History Relations & Conditions If Any: MOTHER FH: Alzheimers disease FATHER FH: lung cancer Psychosocial History Where Do You Live? Home Who Do You Live With? self Services at Home: None Primary Language: Salvadorean Smoking Status: Never Smoked Functional Ability ADLs Independent: dressing, eating, toileting, bathing. Ambulation: walker, frequent falls IADLs Independent: shopping, housework, finances, food prep, telephone, transportation , medication admin. Assessment/Plan Assessment/Plan Assessment: 1. Hypertension, under control 2. Acute CVA with good response to TPA 3. Sinus bradycardia Plan: * Management of CVA as per neurology * Start aspirin after 24 hours * Atorvastatin 40 mg daily * Carotid Doppler study * Echocardiogram pending * Hold metoprolol given sinus bradycardia Consult Acknowledgment - Thank you for your consult request.
--- NOTE | 2018-06-24 17:06 | ULTRASOUND REPORT ---
EXAMINATION: US DUPLEX BILATERAL CAROTID CLINICAL INFORMATION: 77-year-old male with concern for ischemic CVA. COMPARISON: No similar prior examinations available for comparison. TECHNIQUE: Real-time ultrasound and Doppler techniques (integrating B-mode 2D vascular images, Doppler spectral analysis and color flow Doppler imaging) were utilized to interrogate the extracranial carotid and vertebral arteries bilaterally. The degree of stenosis determined by criteria similar to NASCET. FINDINGS: Right side: 1. Moderate amount of calcified plaque is seen in the ECA/ICA region. 2. The common carotid artery velocity is 61 cm/s. 3. The internal carotid artery velocities are 67 cm/s systolic and 10 cm/s diastolic. 4. The external carotid artery velocity is 77 cm/s. Left side: 1. Moderate amount of calcified plaque is seen in the ECA/ICA region. 2. The common carotid artery velocity is 90 cm/s. 3. The internal carotid artery velocities are 116 cm/s systolic and 23 cm/s diastolic. 4. The external carotid artery velocity is 85 cm/s. ADDITIONAL FINDINGS: The vertebral arteries show antegrade flow. IMPRESSION: 1. RIGHT: Minimal, nonhemodynamically significant stenosis of the proximal right internal carotid artery corresponding to a 0-49% stenosis by velocity criteria. 2. LEFT: Minimal, nonhemodynamically significant stenosis of the proximal left internal carotid artery corresponding to a 0-49% stenosis by velocity criteria. 3. No evidence for hemodynamically significant stenosis in the external carotid arteries.
[2018-06-25] VITALS: BP 122/00
[2018-06-25 01:20] LABS: ABSOLUTE BASOPHIL COUNT 0 /CUMM (0.0-0.2); ABSOLUTE EOSINOPHIL COUNT 0.2 /CUMM (0.0-0.7); ABSOLUTE GRANULOCYTE CT 5.3 /CUMM (1.4-6.5); ABSOLUTE LYMPH COUNT 0.5 /CUMM (1.2-3.4); ABSOLUTE MONOCYTE COUNT 0.7 /CUMM (0.10-0.60); BASOPHIL % 0.6 % (0.0-2.0); GRANULOCYTE % 78.6 % (42.2-75.2); MEAN CORPUSCULAR HGB 28.8 PG (27.0-31.0); MEAN CORPUSCULAR HGB CONC 33.3 G/DL (33.0-37.0); MEAN CORPUSCULAR VOLUME 86.4 FL (80.0-94.0); MEAN PLATELET VOLUME 8.9 FL (7.4-10.4); PLATELET COUNT 207 /CUMM (130-400); WHITE BLOOD CELL COUNT 6.8 /CUMM (4.8-10.8)
[2018-06-25 01:26] LABS: PT 14.2 SEC (9.4-12.5)
[2018-06-25 06:25] LABS: ABSOLUTE BASOPHIL COUNT 0 /CUMM (0.0-0.2); ABSOLUTE EOSINOPHIL COUNT 0.2 /CUMM (0.0-0.7); ABSOLUTE GRANULOCYTE CT 4.7 /CUMM (1.4-6.5); ABSOLUTE LYMPH COUNT 0.5 /CUMM (1.2-3.4); ABSOLUTE MONOCYTE COUNT 0.8 /CUMM (0.10-0.60); BASOPHIL % 0.8 % (0.0-2.0); EOSINOPHIL % 3.7 % (0-5); HEMATOCRIT 38.3 % (42-52); MEAN CORPUSCULAR HGB 28.7 PG (27.0-31.0); MEAN CORPUSCULAR HGB CONC 33.5 G/DL (33.0-37.0); MEAN CORPUSCULAR VOLUME 85.7 FL (80.0-94.0); MEAN PLATELET VOLUME 8.8 FL (7.4-10.4); PLATELET COUNT 207 /CUMM (130-400); RBC DISTRIBUTION WIDTH 15.2 % (11.5-14.5); RED BLOOD CELL CT 4.47 /CUMM (4.70-6.10); WHITE BLOOD CELL COUNT 6.3 /CUMM (4.8-10.8)
--- NOTE | 2018-06-25 07:39 | PN- Resident CRCU ---
Jacquelyn VALENTINO,Noemí 06/25/18 0738: Subjective HPI/CRCU Issues: Acute ischemic stroke Right lower extremity neuropathy Left lung patchy opacity History of hypertension History of hypothyroidism 24 Hour Events: No overnight events patient is sitting comfortably in bed, denies any complaints , vital signs stable, aspirin was held yesterday after TPA will be restarted today. The patient will be getting follow-up CT head today Objective Vital Signs & I&O Last 8 Hrs of Vitals and I&O: Vital Signs Date Time Temp Pulse Resp B/P B/P Pulse O2 O2 Flow FiO2 Mean Ox Delivery Rate 06/25 800 96.9 56 18 134/0 92 Room Air 06/25 08 92 Room Air 06/25 0000 97.8 60 21 122/00 97 Room Air 06/24 1436 97.0 60 16 140/80 94 Room Air 06/24 1347 97.5 52 18 148/64 98 06/24 1322 97.5 61 15 142/60 95 Room Air Room Air 06/24 1305 97.5 58 18 140/74 95 Room Air Room Air 06/24 1250 52 17 06/24 1233 98.5 50 18 132/70 98 Nasal 2.0L Cannula 06/24 1220 47 18 138/66 98 Nasal 2.0L Cannula 06/24 1205 47 18 138/68 98 Nasal 2.0L Cannula 06/24 1151 98.2 47 18 136/68 98 Nasal 2.0L Cannula Intake & Output 06/25 1600 06/25 0800 08/08 0000 Intake Total 480 240 Output Total 700 920 Balance -220 -680 Intake, Oral 480 240 Output, Urine 700 920 Exam General Appearance: alert, awake Neck: normal inspection Respiratory: normal breath sounds, chest non-tender Cardiovascular: regular rate/rhythm Gastrointestinal: normal bowel sounds, soft, non-tender Extremities: normal inspection, right foot drop (chroninc due to peripheral neuropathy) Cranial Nerves: normal hearing, normal speech, PERRL Current Medications: Current Medications Sig/Lydia Start time Last Medication Dose Route Stop Time Status Admin Aspirin 81 MG ONCE ONE 06/25 1500 AC PO 06/25 1501 Aspirin Buffered 81 MG DAILY 06/26 09 AC PO Atorvastatin Calcium 80 MG 1700 06/24 1700 DC PO Atorvastatin Calcium 40 [place] 17006/24 1700 AC PO Atropine Sulfate 0 .STK-MED ONE 06/24 1617 OR .ROUTE Cholecalciferol 1,000 IU DAILY 06/25 900 AC 06/25 PO 1021 Folic Acid 1 MG DAILY 06/25 900 AC 06/25 PO 1020 Levothyroxine Sodium 0.15 MG DAILY AC 06/25 700 AC 06/25 PO 0654 Multivitamins 1 TAB DAILY 06/25 900 AC 06/25 Therapeutic PO 1021 Pregabalin 50 MG BID 06/24 1421 AC 06/25 PO 1021 Impression/Plan Impression/Problem List Impression: 77-year-old male withPMH of HTN, lower extremity neuropathy, pernicious anemia presented with sudden onset right-sided facial droop and right-sided weakness/ tingling with having breakfast on the day of admission 10 AM. Stroke alert was called by EMS, he had a CT scan and given TPA at 11:20 AM less than 3 hours with the time of onset after ruling out hemorrhagie/contraindications. Vital signs at presentation are significant for bradycardia, blood pressure 136/60 mmHg saturating well on room air. Physical examination -was only significant for decreased strength 4 out of 5 in the right lower extremity, which is a patient baseline as per the patient due to chronic peripheral neuropathy, UA pending. CT had ruled out acute hemorrhage. EKG did show sinus bradycardia with first- degree AV block. Imaging studies chest x-ray did show patchy opacity left lung base Head and neck CT angiogram did show mid basilar artery occlusion which is age indeterminate, mild to moderate stenosis of internal carotid artery. Plan Acute ischemic stroke * Status post TPA (within 3hrs) * Significant improvement after TPA with recovery of right-sided weakness and speech * Close monitoring of vitals and neuro checks every 1 hour * Any changes in mentation/NIH scale is stat CT head to rule out hemorrhage * Blood pressure goal less than 180 /110 mmHg * PT/OT/speech therapy * Follow-up on swallow eval * Follow-up on repeat head CT from today: * Follow-up on echocardiogram * Cardiology and neurology recommendation appreciated Chest x-ray did show patchy left lung base opacity Asymptomatic, saturating well on room air, normal white count. * Follow-up on repeat chest x-ray today History of hypothyroidism TSH 6.3, free T4 normal * Continue levothyroxine 150 mg daily History of lower extremity neuropathy * Continue pregabaline History of hypertension * Hold antihypertensives for the next 24 hours. Permissive hypertension 180/110 mmHg. * Patient heart rate is in the 50s, will hold metoprolol for now and reassess tomorrow * Can restart hydralazine after 24 hours of TPA DVT prophylaxis None for the next 24 hours given TPA code status full code Problem List: 1. CVA (cerebral vascular accident) Pain Ratin Tomorrow's Labs & Rationales: CBC ICU bundle Plan DVT/Prophylaxis: none , less than 24 hrs after TPA Ally Delacruz MD 06/25/18 0753: Attending MD Review Statement Attending Sign Off Attending Cosign Statement: I have: examined this patient, reviewed al EMR data, personally reviewd images, discussd w/resident/PA/HEALTH PSYCHOLOGIST, agreed w/resident/PA/HEALTH PSYCHOLOGIST, amended to note. Reason for Cont Hospitalizatn: S/p TPA treatment for acute stroke. Other Findings: I have personally seen and examined the patient, and agree with the housestaff's assessment and plan as detailed above. The patient is awake and alert. He reports feeling significantly improved with near resolution of his stroke symptoms. His respiratory status is stable and he has 97% on room air. The patient remains afebrile. He has excellent urine output. There is no report of bleeding overnight. The patient will complete 24 hours of ICU care and follow along with TPA protocol and neurology recommendations. He will have a routine follow-up CT scan of the brain. He will be restarted on antiplatelet therapy and aspirin after 24 hours of TPA administration. He will continue on high-dose statin therapy. We will start the patient on physical therapy, occupational therapy and speech therapy today. The patient's diet will be advanced according to speech therapy and dysphagia assessment. We will follow up echocardiogram results and discuss plan of care with cardiology. We will continue all supportive care for now. The patient will be downgraded later today if his head CT is negative, there is no evidence of bleeding and the patient continues to improve.
[2018-06-25 08:00] VITALS: BP 134/0
--- NOTE | 2018-06-25 11:15 | PN- Cardiology ---
Subjective Subjective: Patient seems to be doing well today. Speech improved. No obvious complaints. 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 Objective Vital Signs and I&Os Vital Signs Date Time Temp Pulse Resp B/P B/P Pulse O2 O2 Flow FiO2 Mean Ox Delivery Rate 06/25 08 96.9 56 18 134/0 92 Room Air 06/25 08 92 Room Air 06/25 0000 97.8 60 21 122/00 97 Room Air 06/24 1436 97.0 60 16 140/80 94 Room Air 06/24 1347 97.5 52 18 148/64 98 06/24 1322 97.5 61 15 142/60 95 Room Air Room Air 06/24 1305 97.5 58 18 140/74 95 Room Air Room Air 06/24 1250 52 17 06/24 1233 98.5 50 18 132/70 98 Nasal 2.0L Cannula 06/24 1220 47 18 138/66 98 Nasal 2.0L Cannula 06/24 1205 47 18 138/68 98 Nasal 2.0L Cannula 06/24 1151 98.2 47 18 136/68 98 Nasal 2.0L Cannula 06/24 1135 98.2 45 18 136/72 97 Nasal 2.0L Cannula 06/24 1116 98.2 46 20 138/62 97 Nasal 2.0L Cannula Intake & Output 06/25 1600 06/25 0806/25 0000 06/24 1600 06/24 0800 06/24 0000 Intake Total 480 240 Output Total 700 920 75 Balance -220 -680 -75 Intake, Oral 480 240 Output, Urine 700 920 75 Patient 271 lb Weight Weight Bed scale Measurement Method Physical Exam: General Appearance: well developed/nourished, overweight white male, alert, awake, oriented Head: normal HEENT: Normal Neck: supple, JVP normal, carotid upstrokes normal bilaterally, no masses or thyromegaly Respiratory: chest non-tender, clear to auscultation and percussion bilaterally Cardiovascular: regular rate/rhythm, normal S1, S2, 1/6 systolic murmur Abdomen: normal bowel sounds, soft, non-tender Extremities: normal inspection, no edema Vascular: Pulses are 2+ and equal bilaterally Neurologic: Grossly normal/nonfocal Current Medications: Current Medications Sig/Lydia Start time Last Medication Dose Route Stop Time Status Admin Aspirin 81 MG ONCE ONE 06/25 1500 AC PO 06/25 1501 Aspirin Buffered 81 MG DAILY 06/26 900 AC PO Atorvastatin Calcium 80 MG 1700 06/24 1700 DC PO Atorvastatin Calcium 40 MG 1700 06/24 1700 AC PO Atropine Sulfate 0 .STK-MED ONE 06/24 1617 DC .ROUTE Cholecalciferol 1,000 IU DAILY 06/25 900 AC 06/25 PO 1021 Folic Acid 1 MG DAILY 06/25 900 AC 06/25 PO 1020 Levothyroxine Sodium 0.15 MG DAILY AC 06/25 700 AC 06/25 PO 0654 Multivitamins 1 TAB DAILY 06/25 900 AC 06/25 Therapeutic PO 1021 Pregabalin 50 MG BID 06/24 1421 AC 06/25 PO 1021 Results Last 48 Hrs of Labs/Mics: Laboratory Tests 06/25/18 0600: Anion Gap 5, Estimated GFR 53 L, BUN/Creatinine Ratio 20.0, Triglycerides 70, Cholesterol 126, LDL Cholesterol, Calc 76, HDL Cholesterol 36 L, Cholesterol/ HDL Ratio 4, CBC w Diff NO MAN DIFF REQ, RBC 4.47 L, MCV 85.7, MCH 28.7, MCHC 33.5, RDW 15.2 H, MPV 8.8, Gran % 75.0, Lymphocytes % 8.4 L, Monocytes % 12.1 H, Eosinophils % 3.7, Basophils % 0.8, Absolute Granulocytes 4.7, Absolute Lymphocytes 0.5 L, Absolute Monocytes 0.8 H, Absolute Eosinophils 0.2, Absolute Basophils 0 06/25/18 0100: Anion Gap 7, Estimated GFR 53 L, Glucose 92, Calcium 8.7, Phosphorus 3.7, Magnesium 1.8, Total Bilirubin 0.4, AST 18, ALT 34, Albumin 3.1 L, PT 14.2 H, INR 1.30 H, CBC w Diff NO MAN DIFF REQ, RBC 4.40 L, MCV 86.4, MCH 28.8, MCHC 33.3, RDW 15.0 H, MPV 8.9, Gran % 78.6 H, Lymphocytes % 6.8 L, Monocytes % 11.0 H, Eosinophils % 3.0, Basophils % 0.6, Absolute Granulocytes 5.3, Absolute Lymphocytes 0.5 L, Absolute Monocytes 0.7 H, Absolute Eosinophils 0.2, Absolute Basophils 0 06/24/18 1033: Anion Gap 7, Estimated GFR 53 L, BUN/Creatinine Ratio 19.2, Glucose 134 H, Calcium 9.0, Total Bilirubin 0.5, AST 18, ALT 28, Alkaline Phosphatase 59, Troponin I < 0.01, Total Protein 5.9 L, Albumin 3.3 L, Globulin 2.6, Albumin/ Globulin Ratio 1.3, TSH 6.360 H, Free T4 1.51, PT 13.0 H, INR 1.19 H, CBC w Diff NO MAN DIFF REQ, RBC 4.74, MCV 86.9, MCH 29.2, MCHC 33.6, RDW 14.6 H, MPV 9.2, Gran % 74.5, Lymphocytes % 7.9 L, Monocytes % 12.5 H, Eosinophils % 4.7, Basophils % 0.4, Absolute Granulocytes 4.9, Absolute Lymphocytes 0.5 L, Absolute Monocytes 0.8 H, Absolute Eosinophils 0.3, Absolute Basophils 0 Assessment/Plan Assessment/Plan Assessment: 1. Hypertension, under control 2. 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 Sinus bradycardia 4. Bilateral carotid plaque 5. Abnormal renal function Plan: -Continue current management as per neurology. -Continue statin and aspirin therapy -Carotid results noted. -Echocardiogram pending -Maintain telemetry monitoring while in hospital. Continue telemetry? Yes
[2018-06-25 12:00] VITALS: BP 150/0
--- NOTE | 2018-06-25 13:53 | CT SCAN REPORT ---
EXAMINATION: CT HEAD WITHOUT CONTRAST CLINICAL INFORMATION: Right-sided weakness with improvement after TPA. COMPARISON: Head CTA 06/24/2018. TECHNIQUE: Contiguous axial imaging was performed from the skull base to vertex without intravenous administration of contrast. DLP: 633 mGy-cm. FINDINGS: There is a new focus of hypoattenuation within the left superior frontal gyrus which may represent a new infarct within the left MCA territory (series 3 image 24). No large territory infarction, hemorrhage, or extra-axial collection is seen. There are perivascular spaces versus chronic small lacunar infarcts within the right and left basal ganglia. The ventricles are normal in size and configuration without evidence of hydrocephalus. The visualized paranasal sinuses are clear. The left mastoid tip is opacified. IMPRESSION: Small focus of new infarction in the left superior frontal gyrus within the MCA territory (series 3 image 24). No new large infarct or hemorrhage.
--- NOTE | 2018-06-25 15:01 | ECHOCARDIOGRAM REPORT ---
GIANA ZULUAGA Age: 77 : 1940 Gender: M Exam Date: 06/24/2018 16:37 Exam Location: [facility] Ht (in): 74 Wt (lb): 271 BSA: 2.57 BP: 140 / 80 Ordering Physician: Maday Alvarez MD Referring Physician: Efrem Majano MD Technologist: Ev Urban CASA Room Number: 105 Indications: Stroke Rhythm: Sinus Technical Quality: Very technically difficult study FINDINGS Left Ventricle Normal size left ventricle. Mild concentric left ventricular hypertrophy. Normal left ventricular ejection fraction visually estimated at >60%. No obvious regional wall motion abnormalities. Right Ventricle Normal right ventricular size and function. Right Atrium Normal right atrial size. Left Atrium Normal left atrial size. Mitral Valve Mitral valve thickened. Trace mitral regurgitation. Aortic Valve Diffuse thickening (sclerosis) of the aortic valve cusps without reduced excursion. No aortic stenosis. No aortic regurgitation. Tricuspid Valve Tricuspid valve not well visualized, grossly normal. Trace tricuspid regurgitation. Pulmonic Valve Mild pulmonic regurgitation. Pericardium No pericardial effusion. Great Vessels Normal size aortic root. CONCLUSIONS Very technically difficult study. Normal size left ventricle. Mild concentric left ventricular hypertrophy. Normal left ventricular ejection fraction visually estimated at > 60%. No aortic regurgitation. Trace tricuspid regurgitation. Mild pulmonic regurgitation. Efrem Majano M.D. (Electronically Signed) Final Date: 25 June 2018 14:55 MEASUREMENTS (Male / Female) Normal Values 2D ECHO LV Diastolic Diameter PLAX 4.4 cm 4.2 - 5.9 / 3.9 - 5.3 cm LV Systolic Diameter PLAX 2.6 cm 2.1 - 4.0 cm LV Fractional Shortening PLAX 40.9 % 25 - 46 % LV Ejection Fraction 2D Teich 71.9 % IVS Diastolic Thickness 1.4 cm LVPW Diastolic Thickness 1.4 cm LV Relative Wall Thickness 0.6 RV Internal Dim ED PLAX 2.8 cm 1.9 - 3.8 cm LVOT Diameter 2.0 cm Aortic Root Diameter 3.5 cm LA Systolic Diameter LX 3.6 cm 3.0 - 4.0 / 2.7 - 3.8 cm LA Volume 34.0 cm 18 - 58 / 22 - 52 cm Ascending Aorta Diameter 3.7 cm DOPPLER AV Peak Velocity 94.6 cm/s AV Peak Gradient 3.6 mmHg AV Mean Velocity 65.9 cm/s AV Mean Gradient 2.0 mmHg AV Velocity Time Integral 25.0 cm LVOT Peak Velocity 64.7 cm/s LVOT Peak Gradient 1.7 mmHg LVOT Mean Velocity 39.6 cm/s LVOT Mean Gradient 1.0 mmHg LVOT Velocity Time Integral 18.6 cm LVOT Stroke Volume 58.4 cm AV Area Cont Eq vti 2.3 cm AV Area Cont Eq pk 2.1 cm MV Peak Velocity 104.0 cm/s MV Peak Gradient 4.3 mmHg MV Mean Velocity 42.5 cm/s MV Mean Gradient 1.0 mmHg Mitral E Point Velocity 87.9 cm/s Mitral A Point Velocity 31.1 cm/s Mitral E to A Ratio 2.8 MV PHT Velocity 106.0 cm/s MV Deceleration Colbert 628.0 cm/s MV Pressure Half Time 50.6 ms MV Area PHT 4.3 cm MV Deceleration Time 180.0 ms PV Peak Velocity 95.1 cm/s PV Peak Gradient 3.6 mmHg PV Mean Velocity 69.7 cm/s PV Mean Gradient 2.0 mmHg PV Velocity Time Integral 26.8 cm LV E' Lateral Velocity 7.3 cm/s Mitral E to LV E' Lateral Ratio 12.0 LV E' Septal Velocity 5.3 cm/s Mitral E to LV E' Septal Ratio 16.7
[2018-06-25 16:00] VITALS: BP 142/0
--- NOTE | 2018-06-25 16:58 | RADIOLOGY REPORT ---
EXAMINATION: XR CHEST CLINICAL INFORMATION: Follow-up for left patchy opacity at left lung base. Evolving pneumonia. Breathing well on room air. Stroke patient. COMPARISON: Chest x-rays dated 06/24/2018, 06/17/2016, and 02/11/2016. TECHNIQUE: 2 views of the chest were obtained. FINDINGS: Multiple EKG leads overlie the chest. The cardiomediastinal silhouette is enlarged, unchanged. Tortuosity and ectasia of the aorta is stable as well. Low lung volumes are seen with some linear atelectatic changes in the lung bases bilaterally, left greater than right, similar to the previous exam. No dense consolidation, effusion or pneumothorax is seen. No pulmonary edema is seen. Lower thoracic spinal fusion hardware is partially included. Degenerative changes as seen in the shoulder joints, left greater than right. IMPRESSION: 1. Low lung volumes with bibasilar opacities, left greater than right, most consistent with atelectatic change. 2. No definite dense consolidation seen to suspect a pneumonia.
[2018-06-26] VITALS: BP 130/00
[2018-06-26 04:29] LABS: ABSOLUTE BASOPHIL COUNT 0 /CUMM (0.0-0.2); ABSOLUTE EOSINOPHIL COUNT 0.3 /CUMM (0.0-0.7); ABSOLUTE GRANULOCYTE CT 4.9 /CUMM (1.4-6.5); ABSOLUTE LYMPH COUNT 0.5 /CUMM (1.2-3.4); ABSOLUTE MONOCYTE COUNT 0.8 /CUMM (0.10-0.60); BASOPHIL % 0.6 % (0.0-2.0); EOSINOPHIL % 5.1 % (0-5); GRANULOCYTE % 74.2 % (42.2-75.2); HEMATOCRIT 39.5 % (42-52); MEAN CORPUSCULAR HGB 28.9 PG (27.0-31.0); MEAN CORPUSCULAR HGB CONC 33.1 G/DL (33.0-37.0); MEAN CORPUSCULAR VOLUME 87.3 FL (80.0-94.0); PLATELET COUNT 197 /CUMM (130-400); RBC DISTRIBUTION WIDTH 15.1 % (11.5-14.5); RED BLOOD CELL CT 4.52 /CUMM (4.70-6.10); WHITE BLOOD CELL COUNT 6.6 /CUMM (4.8-10.8)
--- NOTE | 2018-06-26 07:16 | PN- Resident CRCU ---
Subjective HPI/CRCU Issues: Acute ischemic stroke Right lower extremity neuropathy Left lung patchy opacity History of hypertension History of hypothyroidism 24 Hour Events: Patient seen and examined at bedside, no overnight events, vital signs stable, denies any complaints Objective Vital Signs & I&O Last 8 Hrs of Vitals and I&O: Vital Signs Date Time Temp Pulse Resp B/P B/P Pulse O2 O2 Flow FiO2 Mean Ox Delivery Rate 06/26 800 97.4 52 20 130/80 94 Room Air 06/26 0400 96 Room Air 06/26 0000 95 Room Air 06/26 0000 98.1 56 18 130/00 95 Room Air 06/25 2000 Room Air 06/25 1600 96 Room Air 06/25 1600 96.3 52 24 142/0 96 Room Air Intake & Output 06/26 1600 06/26 0806/26 0000 Intake Total 50 860 Output Total 940 950 Balance -890 -90 Intake, IV 20 Intake, Oral 50 840 Number 0 Bowel Movements Output, Urine 940 950 Patient 260 lb Weight Weight Bed scale Measurement Method Exam General Appearance: alert, awake, comfortable Head: atraumatic, normal appearance Neck: supple Respiratory: normal breath sounds, chest non-tender Cardiovascular: regular rate/rhythm Gastrointestinal: soft, non-tender Extremities: normal inspection, no edema Current Medications: Current Medications Sig/Lydia Start time Last Medication Dose Route Stop Time Status Admin Aspirin 81 MG ONCE ONE 06/25 1500 DC 06/25 PO 06/25 1501 1508 Aspirin Buffered 81 MG DAILY 06/26 900 AC 06/26 PO 0939 Atorvastatin Calcium 40 MG 1700 06/24 1700 AC 06/25 PO 1720 Cholecalciferol 1,000 IU DAILY 06/25 900 AC 06/26 PO 0939 Folic Acid 1 MG DAILY 06/25 900 AC 06/26 PO 0939 Levothyroxine Sodium 0.15 MG DAILY AC 06/25 07 AC 06/26 PO 0713 Multivitamins 1 TAB DAILY 06/25 900 AC 06/26 Therapeutic PO 0939 Polyethylene Glycol 17 GM DAILY 06/25 183 AC 06/26 PO 0939 Pregabalin 50 MG BID 06/24 1421 AC 06/26 PO 0939 Senna/Docusate Sodium 2 TAB DAILY PRN 06/25 1830 AC 06/25 PO 1950 Impression/Plan Impression/Problem List Impression: 77-year-old male withPMH of HTN, lower extremity neuropathy, pernicious anemia presented with sudden onset right-sided facial droop and right-sided weakness/ tingling with having breakfast on the day of admission 10 AM. Stroke alert was called by EMS, he had a CT scan and given TPA at 11:20 AM less than 3 hours with the time of onset after ruling out hemorrhagie/contraindications. Vital signs at presentation are significant for bradycardia, blood pressure 136/60 mmHg saturating well on room air. Physical examination -was only significant for decreased strength 4 out of 5 in the right lower extremity, which is a patient baseline as per the patient due to chronic peripheral neuropathy, UA pending. CT had ruled out acute hemorrhage. EKG did show sinus bradycardia with first- degree AV block. Imaging studies chest x-ray did show patchy opacity left lung base Head and neck CT angiogram did show mid basilar artery occlusion which is age indeterminate, mild to moderate stenosis of internal carotid artery. Plan Acute ischemic stroke * Status post TPA (within 3hrs) * Significant improvement after TPA with recovery of right-sided weakness and speech * Close monitoring of vitals and neuro checks every 1 hour * Any changes in mentation/NIH scale is stat CT head to rule out hemorrhage * Blood pressure goal less than 180 /110 mmHg * PT/OT/speech therapy * Follow-up on swallow eval * Follow-up on repeat head CT showed small infarct in the MCA territory * Follow-up on echocardiogram : Normal size left ventricle, mild concentric LVH, ejection fraction over 60% * Cardiology and neurology recommendation appreciated Chest x-ray did show patchy left lung base opacity Asymptomatic, saturating well on room air, normal white count. * Follow-up on repeat chest x-ray today History of hypothyroidism TSH 6.3, free T4 normal * Continue levothyroxine 150 mg daily History of lower extremity neuropathy * Continue pregabaline History of hypertension * Hold antihypertensives for the next 24 hours. Permissive hypertension 180/110 mmHg. * Patient heart rate is in the 50s, will hold metoprolol for now and reassess tomorrow * Can restart hydralazine after 24 hours of TPA DVT prophylaxis None for the next 24 hours given TPA code status full code Problem List: 1. CVA (cerebral vascular accident) Pain Ratin Tomorrow's Labs & Rationales: cbc icu bundle Plan DVT/Prophylaxis: none , less than 24 hrs after TPA
[2018-06-26 08:00] VITALS: BP 130/80
--- NOTE | 2018-06-26 09:07 | PN- CRCU ---
Subjective HPI/Critical Care Issues: The patient is awake and alert. He reports feeling improved overall. His speech is back to normal. He ambulated with physical therapy yesterday without issue. There were no overnight events reported. Objective Current Medications: Current Medications Sig/Lydia Start time Last Medication Dose Route Stop Time Status Admin Aspirin 81 MG ONCE ONE 06/25 1500 DC 06/25 PO 06/25 1501 1508 Aspirin Buffered 81 MG DAILY 06/26 900 AC PO Atorvastatin Calcium 40 MG 1700 06/24 1700 AC 06/25 PO 1720 Cholecalciferol 1,000 IU DAILY 06/25 09 AC 06/25 PO 1021 Folic Acid 1 MG DAILY 06/25 900 AC 06/25 PO 1020 Levothyroxine Sodium 0.15 MG DAILY AC 06/25 07 AC 06/26 PO 0713 Multivitamins 1 TAB DAILY 06/25 900 AC 06/25 Therapeutic PO 1021 Polyethylene Glycol 17 GM DAILY 06/25 1830 AC 06/25 PO 1950 Pregabalin 50 MG BID 06/24 1421 AC 06/25 PO 2104 Senna/Docusate Sodium 2 TAB DAILY PRN 06/25 1830 AC 06/25 PO 1950 Vital Signs & I&O Last 24 Hrs of Vitals and I&O: Vital Signs Date Time Temp Pulse Resp B/P B/P Pulse O2 O2 Flow FiO2 Mean Ox Delivery Rate 06/26 800 97.4 52 20 130/80 94 Room Air 06/26 0400 96 Room Air 06/26 0000 95 Room Air 06/26 0000 98.1 56 18 130/00 95 Room Air 06/25 2000 Room Air 06/25 1600 96 Room Air 06/25 1600 96.3 52 24 142/0 96 Room Air 06/25 1200 94 Room Air 06/25 1200 97.5 62 20 150/0 94 Room Air Intake & Output 06/26 1600 06/26 0800 / 0000 Intake Total 50 860 Output Total 940 950 Balance -890 -90 Intake, IV 20 Intake, Oral 50 840 Number 0 Bowel Movements Output, Urine 940 950 Patient 260 lb Weight Weight Bed scale Measurement Method Exam General Appearance: alert, awake Neck: supple Respiratory: normal breath sounds, chest non-tender Cardiovascular: regular rate/rhythm, S1 and S2 + Gastrointestinal: normal bowel sounds, soft, non-tender Extremities: normal inspection, right foot drop Cranial Nerves: normal speech, PERRL Results Last 24 Hrs of Lab Results: Laboratory Tests 06/26/18 0355: Anion Gap 4 L, Estimated GFR 53 L, Glucose 103 H, Calcium 8.4, Phosphorus 3.6 , Magnesium 1.6, Total Bilirubin 0.3, AST 16 L, ALT 26, Albumin 2.8 L, CBC w Diff NO MAN DIFF REQ, RBC 4.52 L, MCV 87.3, MCH 28.9, MCHC 33.1, RDW 15.1 H, MPV 9.0, Gran % 74.2, Lymphocytes % 7.7 L, Monocytes % 12.4 H, Eosinophils % 5.1 H, Basophils % 0.6, Absolute Granulocytes 4.9, Absolute Lymphocytes 0.5 L, Absolute Monocytes 0.8 H, Absolute Eosinophils 0.3, Absolute Basophils [address] Scan Findings: Small focus of new infarction in the left superior frontal gyrus within the MCA territory (series 3 image 24). No new large infarct or hemorrhage. Impression/Plan Impression/Plan Impression/Plan: 1. Acute ischemic stroke, status post TPA with good response. Repeat head CT shows a small focus of new infarction in the left superior frontal gyrus within the MCA territory. 2. History of right lower extremity neuropathy. 3. Bibasilar lung opacities, secondary to atelectasis. 4. Hypertension - under control. 5. History of hypothyroidism. 6. Abnormal head CTA with indeterminate age, mid basilar artery occlusion. 7. Sinus bradycardia. 8. Bilateral carotid plaques. 9. Abnormal renal function, but stable. Recommendations: * Discontinue Javed catheter. * Continue to monitor blood pressure to maintain within goal. * Continue statin and aspirin therapy. * PT/OT/speech therapy. * Out of bed to chair, ambulate as much as possible. * Advance diet as tolerated. * Continue to follow cardiology and neurology recommendations. * Maintain telemetry monitoring while in the hospital. * Continue bowel regimen as needed. * Continue levothyroxine for hypothyroidism. * Continue Lyrica for neuropathy. * Downgrade to telemetry once the patient is no longer on every hour blood pressures (per NIH stroke scale).
--- NOTE | 2018-06-26 13:04 | PN- Cardiology ---
Subjective Subjective: Feeling well. Speech is close normal. No new neurologic symptoms. no chest pain. No palpitations. No diaphoresis. No nausea or vomiting. Objective Vital Signs and I&Os Vital Signs Date Time Temp Pulse Resp B/P B/P Pulse O2 O2 Flow FiO2 Mean Ox Delivery Rate 06/26 1600 97 Room Air 06/26 1539 57 168/80 06/26 1504 98.3 65 20 198/78 94 Room Air 06/26 0800 97.4 52 20 130/80 94 Room Air 06/26 0400 96 Room Air 06/26 0000 95 Room Air 06/26 0000 98.1 56 18 130/00 95 Room Air 06/25 2000 Room Air Intake & Output 06/26 1600 06/26 0806/26 0000 06/25 1600 06/25 0000 Intake Total 710 50 860 900 480 240 Output Total 500 940 950 450 700 920 Balance 210 -890 -90 450 -220 -680 Intake, IV 10 20 20 Intake, Oral 700 50 840 880 480 240 Number 0 0 Bowel Movements Output, Urine 500 940 950 450 700 920 Patient 260 lb Weight Weight Bed scale Measurement Method Physical Exam: Gen: The patient is in no acute distress HEENT: Normal nose, ears, and oropharynx. Pupils equal bilaterally. Conjunctiva normal. Neck: Supple with no JVD, no masses, and no thyromegaly Lungs: Clear to auscultation with normal respiratory effort Heart: RRR, S1, S2, 1/6 systolic murmur. No peripheral edema, 2+ pulses in the lower extremities bilaterally Abdomen: Soft, nontender, no masses. No hepatomegaly. No splenomegaly Extremities: No clubbing or cyanosis. Normal muscle strength in the upper and lower extremities Skin: Normal skin turgor with no skin ulcers or lesions noted. Current Medications: Current Medications Sig/Lydia Start time Last Medication Dose Route Stop Time Status Admin Aspirin Buffered 81 MG DAILY 06/26 900 AC 06/26 PO 09 Atorvastatin Calcium 40 MG 1700 06/24 1700 AC 06/25 PO 1720 Cholecalciferol 1,000 IU DAILY 06/25 900 AC 06/26 PO 09 Folic Acid 1 MG DAILY 06/25 900 AC 06/26 PO 09 Levothyroxine Sodium 0.15 MG DAILY AC 06/25 700 AC 06/26 PO 0713 Multivitamins 1 TAB DAILY 06/25 900 AC 06/26 Therapeutic PO 39 Polyethylene Glycol 17 GM DAILY 06/25 1830 AC 06/26 PO 39 Pregabalin 50 MG BID 06/24 1421 AC 06/26 PO 0939 Senna/Docusate Sodium 2 TAB DAILY PRN 06/25 1830 AC 06/25 PO 1950 Results Last 48 Hrs of Labs/Mics: Laboratory Tests 06/26/18 0355: Anion Gap 4 L, Estimated GFR 53 L, Glucose 103 H, Calcium 8.4, Phosphorus 3.6 , Magnesium 1.6, Total Bilirubin 0.3, AST 16 L, ALT 26, Albumin 2.8 L, CBC w Diff NO MAN DIFF REQ, RBC 4.52 L, MCV 87.3, MCH 28.9, MCHC 33.1, RDW 15.1 H, MPV 9.0, Gran % 74.2, Lymphocytes % 7.7 L, Monocytes % 12.4 H, Eosinophils % 5.1 H, Basophils % 0.6, Absolute Granulocytes 4.9, Absolute Lymphocytes 0.5 L, Absolute Monocytes 0.8 H, Absolute Eosinophils 0.3, Absolute Basophils 0 06/25/18 0600: Anion Gap 5, Estimated GFR 53 L, BUN/Creatinine Ratio 20.0, Triglycerides 70, Cholesterol 126, LDL Cholesterol, Calc 76, HDL Cholesterol 36 L, Cholesterol/ HDL Ratio 4, CBC w Diff NO MAN DIFF REQ, RBC 4.47 L, MCV 85.7, MCH 28.7, MCHC 33.5, RDW 15.2 H, MPV 8.8, Gran % 75.0, Lymphocytes % 8.4 L, Monocytes % 12.1 H, Eosinophils % 3.7, Basophils % 0.8, Absolute Granulocytes 4.7, Absolute Lymphocytes 0.5 L, Absolute Monocytes 0.8 H, Absolute Eosinophils 0.2, Absolute Basophils 0 06/25/18 0100: Anion Gap 7, Estimated GFR 53 L, Glucose 92, Calcium 8.7, Phosphorus 3.7, Magnesium 1.8, Total Bilirubin 0.4, AST 18, ALT 34, Albumin 3.1 L, PT 14.2 H, INR 1.30 H, CBC w Diff NO MAN DIFF REQ, RBC 4.40 L, MCV 86.4, MCH 28.8, MCHC 33.3, RDW 15.0 H, MPV 8.9, Gran % 78.6 H, Lymphocytes % 6.8 L, Monocytes % 11.0 H, Eosinophils % 3.0, Basophils % 0.6, Absolute Granulocytes 5.3, Absolute Lymphocytes 0.5 L, Absolute Monocytes 0.7 H, Absolute Eosinophils 0.2, Absolute Basophils 0 Microbiology 06/24 1800 UPPER RESP: Surveillance Culture - COMP 06/24 1800 GI: Surveillance Culture - COMP Recent Imaging Studies: echocardiogram: Very technically difficult study. Normal size left ventricle. Mild concentric left ventricular hypertrophy. Normal left ventricular ejection fraction visually estimated at > 60%. No aortic regurgitation. Trace tricuspid regurgitation. Mild pulmonic regurgitation. Assessment/Plan Assessment/Plan Assessment: 1. Hypertension, under control 2. 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 Sinus bradycardia 4. Bilateral carotid plaque 5. Abnormal renal function Plan: * Management of stroke as per Neurology * Continue aspirin and statin therapy * Continue telemetry while in the hospital * Follow up in the office 1 to 2 weeks after discharge Continue telemetry? Yes
--- NOTE | 2018-06-26 14:25 | Transfer of Care Summary ---
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 He started feeling funny in his right hand and face with tingling sensations, so he started feeling the same in his leg. Within few minutes he was unable to talk and EMS were called and a stroke alert was made. He was brought to ER and sent to CT scan immediately, once rule out hemorrhage and contraindications he was given tPA after discussing benefits and risks. Within few minutes after giving TPA he recovered very well he started having near normal speech and able to move both his upper and lower extremities. By the time the patient interviewed by the ICU team in the ER, he was alert oriented 3 able to communicate well and able to move all his 4 extremities. However he felt his speech is not back to normal, passed bedside swallow evaluation. On the next day the patient reported complete resolution of his symptoms including speech. However he had persistent right lower extremity weakness which is his baseline due to peripheral neuropathy. He was cane to ambulate responds well to Lyrica. Never checks his blood pressure at home. He lives independently with a female friend. Unmarried. Quit smoking in , quit alcohol in 1998. No drug intake. He had a fall secondary to neuropathy and fractured his femur around one and half years ago which was repaired. He did have a back surgery with screw insertions for back pain. Patient was admitted to the ICU for the following conditions: Acute ischemic stroke * Status post TPA (within 3hrs) * Significant improvement after TPA with recovery of right-sided weakness and speech * Close monitoring of vitals and neuro checks every 1 hour * Follow-up on repeat head CT 24 hours after TPA showed small infarct in the MCA territory * Aspirin was held in the first 24 hours after TPA and was restarted later Chest x-ray did show patchy left lung base opacity Asymptomatic, saturating well on room air, normal white count. * Repeated chest x-ray showed: Low lung volumes with bibasilar opacities, left greater than right, most consistent with atelectatic change. 2. No definite dense consolidation seen to suspect a pneumonia. History of hypothyroidism TSH 6.3, free T4 normal * Continued home dose levothyroxine 150 mg daily History of lower extremity neuropathy * Continued on the pregabaline History of hypertension * antihypertensives for the first 24 hours after TPA. Permissive hypertension 180/110 mmHg was allowed. * Patient heart rate is in the 50s, hold metoprolol was held * His blood pressure was running towards the lower side when he was in the ICU. Can restart his home dose hydralazine if his blood pressure allows DVT prophylaxis None after TPA, can start DVT prophylaxis if approved by neurology code status full code Assessment/Plan: Please see above
[2018-06-26 15:04] VITALS: BP 198/78
[2018-06-26 15:39] VITALS: BP 168/80
--- NOTE | 2018-06-26 16:18 | PN- Neurology ---
Subjective Subjective: All symptoms cleared, back to normal Review of Systems: No headache, chest pain or palpitations. No bleeding Objective Vital Signs and I&Os Vital Signs Date Time Temp Pulse Resp B/P B/P Pulse O2 O2 Flow FiO2 Mean Ox Delivery Rate 06/26 1539 57 168/80 06/26 1504 98.3 65 20 198/78 94 Room Air 06/26 0800 97.4 52 20 130/80 94 Room Air 06/26 0400 96 Room Air 06/26 0000 95 Room Air 06/26 0000 98.1 56 18 130/00 95 Room Air 06/25 2000 Room Air Intake & Output 06/26 1600 06/26 0000 06/25 1600 06/25 0000 Intake Total 710 50 860 900 480 240 Output Total 500 940 950 450 700 920 Balance 210 -890 -90 450 -220 -680 Intake, IV 10 20 20 Intake, Oral 700 50 840 880 480 240 Number 0 0 Bowel Movements Output, Urine 500 940 950 450 700 920 Patient 260 lb Weight Weight Bed scale Measurement Method Physical Exam: Alert, oriented, no language errors, no dysarthria. Visual lopez and eye movements as well as pupillary light was leiva normal Face symmetric No lateralized weakness Current Medications: Current Medications Sig/Lydia Start time Last Medication Dose Route Stop Time Status Admin Aspirin Buffered 81 MG DAILY 06/26 900 AC 06/26 PO 0939 Atorvastatin Calcium 40 MG 1700 06/24 1700 AC 06/25 PO 1720 Cholecalciferol 1,000 IU DAILY 06/25 900 AC 06/26 PO 0939 Folic Acid 1 MG DAILY 06/25 900 AC 06/26 PO 0939 Levothyroxine Sodium 0.15 MG DAILY AC 06/25 07 AC 06/26 PO 0713 Multivitamins 1 TAB DAILY 06/25 900 AC 06/26 Therapeutic PO 39 Polyethylene Glycol 17 GM DAILY 06/25 1830 AC 06/26 PO 0939 Pregabalin 50 MG BID 06/24 1421 AC 06/26 PO 0939 Senna/Docusate Sodium 2 TAB DAILY PRN 06/25 1830 AC 06/25 PO 1950 Results Last 24 Hours of Lab Results: Laboratory Tests 06/26 0355 Chemistry Sodium (137 - 145 mmol/L) 137 Potassium (3.5 - 5.1 mmol/L) 4.0 Chloride (98 - 107 mmol/L) 105 Carbon Dioxide (22 - 30 mmol/L) 28 Anion Gap (5 - 16) 4 L BUN (9 - 20 mg/dL) 26 H Creatinine (0.7 - 1.2 mg/dL) 1.3 H Estimated GFR (>60 ml/min) 53 L Glucose (65 - 99 mg/dL) 103 H Calcium (8.4 - 10.2 mg/dL) 8.4 Phosphorus (2.5 - 4.5 mg/dL) 3.6 Magnesium (1.6 - 2.3 mg/dL) 1.6 Total Bilirubin (0.2 - 1.3 mg/dL) 0.3 AST (17 - 59 U/L) 16 L ALT (21 - 72 U/L) 26 Albumin (3.5 - 5.0 g/dL) 2.8 L Hematology CBC w Diff NO MAN DIFF REQ WBC (4.8 - 10.8 /CUMM) 6.6 RBC (4.70 - 6.10 /CUMM) 4.52 L Hgb (14.0 - 18.0 G/DL) 13.1 L Hct (42 - 52 %) 39.5 L MCV (80.0 - 94.0 FL) 87.3 MCH (27.0 - 31.0 PG) 28.9 MCHC (33.0 - 37.0 G/DL) 33.1 RDW (11.5 - 14.5 %) 15.1 H Plt Count (130 - 400 /CUMM) 197 MPV (7.4 - 10.4 FL) 9.0 Gran % (42.2 - 75.2 %) 74.2 Lymphocytes % (20.5 - 51.1 %) 7.7 L Monocytes % (1.7 - 9.3 %) 12.4 H Eosinophils % (0 - 5 %) 5.1 H Basophils % (0.0 - 2.0 %) 0.6 Absolute Granulocytes (1.4 - 6.5 /CUMM) 4.9 Absolute Lymphocytes (1.2 - 3.4 /CUMM) 0.5 L Absolute Monocytes (0.10 - 0.60 /CUMM) 0.8 H Absolute Eosinophils (0.0 - 0.7 /CUMM) 0.3 Absolute Basophils (0.0 - 0.2 /CUMM) 0 Triglycerides 70 Total cholesterol 126 LDL 76 HDL 36-low Ratio 4 Recent Imaging Studies: CT follow-up after TPA: FINDINGS: There is a new focus of hypoattenuation within the left superior frontal gyrus which may represent a new infarct within the left MCA territory (series 3 image 24). No large territory infarction, hemorrhage, or extra-axial collection is seen. There are perivascular spaces versus chronic small lacunar infarcts within the right and left basal ganglia. The ventricles are normal in size and configuration without evidence of hydrocephalus. The visualized paranasal sinuses are clear. The left mastoid tip is opacified. IMPRESSION: Small focus of new infarction in the left superior frontal gyrus within the MCA territory (series 3 image 24). No new large infarct or hemorrhage. Carotid ultrasound ADDITIONAL FINDINGS: The vertebral arteries show antegrade flow. IMPRESSION: 1. RIGHT: Minimal, nonhemodynamically significant stenosis of the proximal right internal carotid artery corresponding to a 0-49% stenosis by velocity criteria. 2. LEFT: Minimal, nonhemodynamically significant stenosis of the proximal left internal carotid artery corresponding to a 0-49% stenosis by velocity criteria. 3. No evidence for hemodynamically significant stenosis in the external carotid arteries. Echocardiogram: CONCLUSIONS Very technically difficult study. Normal size left ventricle. Mild concentric left ventricular hypertrophy. Normal left ventricular ejection fraction visually estimated at > 60%. No aortic regurgitation. Trace tricuspid regurgitation. Mild pulmonic regurgitation. Efremmahsa Holmanworth [place] Assessment/Plan Assessment: Stroke, left hemispheric, marked improvement with TPA, clinically back to normal. Small area of infarction without clinical correlate on follow-up CT in left frontal lobe On appropriate medications Blood pressure starting to come under control Plan: Okay neurologically for discharge home and outpatient follow-up Will need BP management
[2018-06-26 22:12] VITALS: BP 164/90
--- NOTE | 2018-06-27 05:22 | PN- Housestaff ---
Humberto Justin 06/27/18 0522: Subjective Follow-up For: Acute stroke vs TIA Hypertension Tele-Events Since Last Visit: Overnight patient was in sinus bradycardia, experienced a 4-beat run of v-tach Subjective: Patient seen resting comfortably in the bed. He is feeling much improved, reports resolution of his speech and motor symptoms. He denied visual changes, confusion, headache or numbness/tingling. Patient also denied chest pain, palpitations, shortness of breath, dizziness or fever/chills, nausea/vomiting or abdominal pain/diarrhea. Patient reports continued weakness of the RLE, but he reports having "foot drop" for quite some time now. Review of Systems Constitutional: Denies: chills, diaphoresis, fever, malaise, weakness. Objective Last 24 Hrs of Vital Signs/I&O Vital Signs Date Time Temp Pulse Resp B/P B/P Pulse O2 O2 Flow FiO2 Mean Ox Delivery Rate 06/27 0640 98.3 69 20 136/70 90 Room Air 06/26 2212 98.5 58 21 164/90 93 06/26 1600 97 Room Air 06/26 1539 57 168/80 06/26 1504 98.3 65 20 198/78 94 Room Air 06/26 0800 97.4 52 20 130/80 94 Room Air Intake & Output 06/27 0800 08 0000 06/26 1600 Intake Total 280 710 Output Total 300 425 500 Balance -300 -145 210 Intake, IV 10 Intake, Oral 280 700 Number 0 Bowel Movements Output, Urine 300 425 500 Patient 119.947 kg Weight Physical Exam General Appearance: Alert, Oriented X3, Cooperative, No Acute Distress HEENT: Atraumatic, PERRLA Neck: Supple, No JVD Cardiovascular: Regular Rate, Normal S1, Normal S2 Lungs: Clear to Auscultation, Normal Air Movement Extremities: No Cyanosis, No Edema, RLE 0/5, RUE 5/5, LUE 5/5, LLE, 5/5 Current Medications: Current Medications Sig/Lydia Start time Last Medication Dose Route Stop Time Status Admin Aspirin Buffered 81 MG DAILY 06/26 900 AC 06/26 PO 09 Atorvastatin Calcium 40 MG 1700 06/24 1700 AC 06/26 PO 1856 Cholecalciferol 1,000 IU DAILY 06/25 900 AC 06/26 PO 09 Folic Acid 1 MG DAILY 06/25 900 AC 06/26 PO 938 Levothyroxine Sodium 0.15 MG DAILY AC 06/25 07 AC 06/27 PO 0619 Multivitamins 1 TAB DAILY 06/25 900 AC 06/26 Therapeutic PO 938 Polyethylene Glycol 17 GM DAILY 06/25 1830 AC 06/26 PO 938 Pregabalin 50 MG BID 06/24 1421 AC 06/26 PO 2017 Senna/Docusate Sodium 2 TAB DAILY PRN 06/25 1830 AC 06/26 PO 2021 Last 24 Hrs of Lab/Ash Results Last 24 Hrs of Labs/Mics: Laboratory Tests 06/27/18 0610: Sodium Pending, Potassium Pending, Chloride Pending, Carbon Dioxide Pending, Anion Gap Pending, BUN Pending, Creatinine Pending, BUN/Creatinine Ratio Pending , CBC w Diff Pending, WBC Pending, RBC Pending, Hgb Pending, Hct Pending, MCV Pending, MCH Pending, MCHC Pending, RDW Pending, Plt Count Pending, MPV Pending Assessment/Plan Assessment: 68-year-old male with past medical history significant for hypertension, hypothyroidism, 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 Patient received tPA in the ED. Problems: 1. Acute Ischemic stroke 2. Hypertension (chronic) 3. Hypothyroidism (chronic) 4. LE Neuropathy (chronic) Plan: * Restart home dose of Hydralazine * Aspirin & statin * Levothyroxine 150mcg po daily * Pregabalin 50mg BID Full code NIH Stroke Scale Q2H DVT ppx, patient s/p tPA, ALPS Heart healthy diet Problem List: 1. CVA (cerebral vascular accident) 2. Bradycardia 3. Hypertension Pain Ratin Pain Location: none Pain Goal: Pain 4 or less Pain Plan: per pathway Tomorrow's Labs & Rationales: CBC & BEP Nabil VALENTINO,Caren 06/27/18 1441: Attending MD Review Statement Attending Statement Attending MD Statement: examined this patient, discuss w/resident/PA/TRAIN GATEMAN, agreed w/resident/PA/TRAIN GATEMAN, reviewed EMR data (avail), discussed with nursing, discussed with case mgmt, amended to note Attending Assessment/Plan: Patient seen and examined. Transferred out of the ICU overnight. Records reviewed. Case discussed with activity aid Anthony Casey MD and watermaster Ally Delacruz MD. Currently resting comfortably in his bed not in any acute distress. He was able to ambulate with use of his walker today. He has been cleared by the physical therapy service for discharge home. He has baseline weakness in the right lower extremity. He has a brace for his baseline right foot drop. Antihypertensive medications were initially on hold however blood pressure is getting more elevated. Will resume his hydralazine. Beta-carisa therapy was he is on hold due to episodes of bradycardia while in the intensive care unit. He did have an episode of ventricular ectopy overnight. He was asymptomatic and hemodynamically stable. Patient is unable to obtain transportation to get home today. We will monitor him overnight to ensure his blood pressure is adequately controlled on the as well as in which will be resumed today. Will monitor for further ventricular ectopy. He remained stable overnight. He may be discharged home in the morning. Case discussed with his activity aid. He does have leukocytosis today. Likely reactive. No evidence of an infection at present. Repeat CBCs in a.m. Renal function is stable.
[2018-06-27 06:40] VITALS: BP 136/70
[2018-06-27 07:40] LABS: ABSOLUTE BASOPHIL COUNT 0 /CUMM (0.0-0.2); ABSOLUTE EOSINOPHIL COUNT 0.4 /CUMM (0.0-0.7); ABSOLUTE GRANULOCYTE CT 10.7 /CUMM (1.4-6.5); ABSOLUTE LYMPH COUNT 0.4 /CUMM (1.2-3.4); BASOPHIL % 0.1 % (0.0-2.0); EOSINOPHIL % 2.9 % (0-5); GRANULOCYTE % 85.9 % (42.2-75.2); HEMATOCRIT 40.2 % (42-52); MEAN CORPUSCULAR HGB CONC 33.6 G/DL (33.0-37.0); MEAN CORPUSCULAR VOLUME 86.1 FL (80.0-94.0); MEAN PLATELET VOLUME 9.8 FL (7.4-10.4); PLATELET COUNT 201 /CUMM (130-400); RBC DISTRIBUTION WIDTH 14.9 % (11.5-14.5); RED BLOOD CELL CT 4.66 /CUMM (4.70-6.10)
[2018-06-27 08:51] LABS: WHITE BLOOD CELL COUNT 12.4 /CUMM (4.8-10.8)
--- NOTE | 2018-06-27 11:10 | PN- Cardiology ---
Subjective Subjective: Doing well with no residual symptoms. No cardiac issues. No arrhythmias detected. Objective Vital Signs and I&Os Vital Signs Date Time Temp Pulse Resp B/P B/P Pulse O2 O2 Flow FiO2 Mean Ox Delivery Rate 06/27 0640 98.3 69 20 136/70 90 Room Air 06/26 2212 98.5 58 21 164/90 93 06/26 1600 97 Room Air 06/26 1539 57 168/80 06/26 1504 98.3 65 20 198/78 94 Room Air Intake & Output 06/27 0000 06/26 1600 06/26 0000 Intake Total 400 280 710 50 860 Output Total 300 425 500 940 950 Balance 100 -145 210 -890 -90 Intake, IV 10 20 Intake, Oral 400 280 700 50 840 Number 0 0 Bowel Movements Output, Urine 300 425 500 940 950 Patient 264 lb 260 lb Weight Weight Bed scale Measurement Method Physical Exam: Gen: The patient is in no acute distress HEENT: Normal nose, ears, and oropharynx. Pupils equal bilaterally. Conjunctiva normal. Neck: Supple with no JVD, no masses, and no thyromegaly Lungs: Clear to auscultation with normal respiratory effort Heart: RRR, S1, S2, 1/6 systolic murmur. No peripheral edema, 2+ pulses in the lower extremities bilaterally Abdomen: Soft, nontender, no masses. No hepatomegaly. No splenomegaly Extremities: No clubbing or cyanosis. Normal muscle strength in the upper and lower extremities Skin: Normal skin turgor with no skin ulcers or lesions noted. Current Medications: Current Medications Sig/Lydia Start time Last Medication Dose Route Stop Time Status Admin Aspirin Buffered 81 MG DAILY 06/26 900 AC 06/27 PO 08 Atorvastatin Calcium 40 MG 1700 06/24 1700 AC 06/26 PO 1856 Cholecalciferol 1,000 IU DAILY 06/25 900 AC 06/27 PO 08 Folic Acid 1 MG DAILY 06/25 900 AC 06/27 PO 08 Levothyroxine Sodium 0.15 MG DAILY AC 06/25 700 AC 06/27 PO 0619 Multivitamins 1 TAB DAILY 06/25 900 AC 06/27 Therapeutic PO 08 Polyethylene Glycol 17 GM DAILY 06/25 1830 AC 06/27 PO 08 Pregabalin 50 MG BID 06/24 1421 AC 06/27 PO 08 Senna/Docusate Sodium 2 TAB DAILY PRN 06/25 1830 AC 06/26 PO 2021 Results Last 48 Hrs of Labs/Mics: Laboratory Tests 06/27/18 0610: Anion Gap 5, Estimated GFR 53 L, BUN/Creatinine Ratio 20.8, CBC w Diff NO MAN DIFF REQ, RBC 4.66 L, MCV 86.1, MCH 29.0, MCHC 33.6, RDW 14.9 H, MPV 9.8, Gran % 85.9 H, Lymphocytes % 3.3 L, Monocytes % 7.8, Eosinophils % 2.9, Basophils % 0.1, Absolute Granulocytes 10.7 H, Absolute Lymphocytes 0.4 L, Absolute Monocytes 1.0 H, Absolute Eosinophils 0.4, Absolute Basophils 0 06/26/18 0355: Anion Gap 4 L, Estimated GFR 53 L, Glucose 103 H, Calcium 8.4, Phosphorus 3.6 , Magnesium 1.6, Total Bilirubin 0.3, AST 16 L, ALT 26, Albumin 2.8 L, CBC w Diff NO MAN DIFF REQ, RBC 4.52 L, MCV 87.3, MCH 28.9, MCHC 33.1, RDW 15.1 H, MPV 9.0, Gran % 74.2, Lymphocytes % 7.7 L, Monocytes % 12.4 H, Eosinophils % 5.1 H, Basophils % 0.6, Absolute Granulocytes 4.9, Absolute Lymphocytes 0.5 L, Absolute Monocytes 0.8 H, Absolute Eosinophils 0.3, Absolute Basophils 0 Assessment/Plan Assessment/Plan Assessment: 1. Hypertension, under control 2. 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 Sinus bradycardia 4. Bilateral carotid plaque 5. Abnormal renal function Plan: * Management of stroke as per Neurology * Continue aspirin and statin therapy * Continue telemetry while in the hospital * Follow up in the office in [address] Majano Continue telemetry? No
--- NOTE | 2018-06-27 13:29 | Patient Discharge Instructions ---
Discharge Instructions General Discharge Information You were seen/treated for: CVA Watch for these problems: Please return to the ER in case of any slurred speech, facial droop, sudden loss of vision or speech difficulty or numbness/weakness in any part of your body. Special Instructions: Please follow up with your PCP and Neurologist within a week after discharge. Diet Continue normal diet: Yes Activity Full Activity/No Limits: Yes Activity Self Limited: Yes Acute Coronary Syndrome Inclusion Criteria At DC or during hospital stay patient has or had the following: ACS DIAGNOSIS No Discharge Core Measures Meds if any: Prescribed or Continued at Discharge Meds if any: NOT Prescribed or Continued at Discharge Congestive Heart Failure Inclusion Criteria At DC or during hospital stay patient has or had the following: CHF DIAGNOSIS No Discharge Core Measures Meds if any: Prescribed or Continued at Discharge Meds if any: NOT Prescribed or Continued at Discharge Cerebrovascular accident Inclusion Criteria At DC or during hospital stay patient has or had the following: CVA/TIA Diagnosis Yes Discharge Core Measures Meds if any: Prescribed or Continued at Discharge Antithrombotic Yes Statin (required if LDL =>70) Yes Meds if any: NOT Prescribed or Continued at Discharge No Anticoagulant d/t Medical Contraindication (recent tPA) Venous thromboembolism Inclusion Criteria VTE Diagnosis No VTE Type NONE VTE Confirmed by (Test) NONE Discharge Core Measures - Per Current guidelines, there needs to be overlap - treatment for the first 5 days of Warfarin therapy. - If discharged on Warfarin prior to 5 days of - overlap therapy, the patient will need to be - assessed for post discharge needs including - *Post discharge parental anticoagulation - *Warfarin and/or parental anticoagulation education - *Follow up date to check INR post discharge At least 5 days overlap therapy as Inpatient No Meds if any: Prescribed or Continued at Discharge Note: Overlap Therapy is Warfarin and Anticoagulant Meds if any: NOT Prescribed or Continued at Discharge
[2018-06-27 14:00] VITALS: BP 130/72
[2018-06-27 22:26] VITALS: BP 120/76
[2018-06-28 06:44] VITALS: BP 122/74
[2018-06-28 08:27] VITALS: BP 120/72
[2018-06-28 08:53] LABS: ABSOLUTE BASOPHIL COUNT 0 /CUMM (0.0-0.2); ABSOLUTE EOSINOPHIL COUNT 0.4 /CUMM (0.0-0.7); ABSOLUTE GRANULOCYTE CT 5.3 /CUMM (1.4-6.5); ABSOLUTE LYMPH COUNT 0.5 /CUMM (1.2-3.4); ABSOLUTE MONOCYTE COUNT 0.9 /CUMM (0.10-0.60); BASOPHIL % 0.5 % (0.0-2.0); EOSINOPHIL % 5.5 % (0-5); GRANULOCYTE % 74.7 % (42.2-75.2); HEMATOCRIT 39.5 % (42-52); MEAN CORPUSCULAR HGB 29.1 PG (27.0-31.0); MEAN CORPUSCULAR HGB CONC 33.4 G/DL (33.0-37.0); MEAN CORPUSCULAR VOLUME 87.2 FL (80.0-94.0); MEAN PLATELET VOLUME 9.8 FL (7.4-10.4); PLATELET COUNT 183 /CUMM (130-400); RBC DISTRIBUTION WIDTH 15.1 % (11.5-14.5); RED BLOOD CELL CT 4.53 /CUMM (4.70-6.10); WHITE BLOOD CELL COUNT 7.1 /CUMM (4.8-10.8)
[2018-06-28] MEDS ORDERED: ATORVASTATIN CA40 M1 PO (10:38)
--- NOTE | 2018-06-28 11:26 | PN- Housestaff ---
See Addendum Subjective Follow-up For: acute strooke vs TIA HTN Complaints: no complaints Tele-Events Since Last Visit: No significant events Subjective: I saw the patient in the morning, He was very rude and said that he was told he could go home. He did not care if he had Bowel movements or not, he wanted to go home anyway if his Other medical problems were in place enough to go home. If his discharge was not prepared, He would go home AMA. Review of Systems Constitutional: Reports: see HPI. 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 Patient received tPA in the ED. Problems: 1. Acute Ischemic stroke 2. Hypertension (chronic) 3. Hypothyroidism (chronic) 4. LE Neuropathy (chronic) Plan:- no additional treatment change was done, continued the same, received a suppository for BM< and patient was discharged on request * Restart home dose of Hydralazine * Aspirin & statin * Levothyroxine 150mcg po daily * Pregabalin 50mg BID Problem List: 1. CVA (cerebral vascular accident) Pain Ratin Pain Location: none Pain Goal: Remain pain free Pain Plan: none Tomorrow's Labs & Rationales: none
== END 2018-06-28 13:30 | disposition home health service (06) | DRG 62 ==
LOC: ERH 10:20 → CRI 12:52 → ERHI 12:52 → ENRESERV 13:11 → ENTRNSPT 13:33 → CRI 13:35 → EDTRNSPTSTS 13:38 → CRI 14:01 → CMPTRNSPT 14:06 → ENTRNSPT 06-26 13:48 → EDTRNSPTSTS 06-26 13:54 → EDTRNSPT 06-26 13:54 → 1NO 06-26 14:02 → CMPTRNSPT 06-26 14:09 → 1NO 06-27 07:32 → ENPENDDIS 06-28 13:02 → ENTRNSPT 06-28 13:24 → 1NO 06-28 13:30 → CMPTRNSPT 06-28 13:38
PROVIDERS: Emergency Medicine; Internal Medicine; Student in an Organized Health Care Education/Training Program
DX: I63.233 Cerebral infarction due to unspecified occlusion or stenosis of bilateral carotid arteries (principal); G81.91 Hemiplegia, unspecified affecting right dominant side; I47.2 Ventricular tachycardia; I10 Essential (primary) hypertension; E11.42 Type 2 diabetes mellitus with diabetic polyneuropathy; R29.715 NIHSS score 15; R00.1 Bradycardia, unspecified; R29.810 Facial weakness; D51.0 Vitamin B12 deficiency anemia due to intrinsic factor deficiency; E03.9 Hypothyroidism, unspecified; M54.9 Dorsalgia, unspecified; Z87.81 Personal history of (healed) traumatic fracture; Z85.820 Personal history of malignant melanoma of skin
CPT/HCPCS: 1NSP; CCU; 36415; 36592; 71045; 71046; 82436; 93005; 93010; 93306; 96374; 97110-GO; 97116-GO; 97161-GP; 97530-GO; 99291; J0461; J3490; Q9957